=== PATIENT | female | born 1995 | race Caucasian/White ===

== ENCOUNTER 2021-01-31 05:52 | Emergency (ER) | payer MEDICAID, SELFPAY ==
--- NOTE | ~2021-01-31 | CT_ITS ---
EXAMINATION: CT ABDOMEN AND PELVIS WITHOUT CONTRAST CLINICAL INFORMATION: Right lower quadrant pain. Concern for appendicitis. COMPARISON: None TECHNIQUE: Multidetector volumetric imaging was performed from the superior aspect of the liver through the pubic symphysis. Sagittal and coronal reformatted images were obtained on the technologist's workstation. This CT examination was performed using dose optimization techniques as appropriate, variously including the following: *Automated exposure control *Adjustment of mA and/or kV according to patient size (this includes techniques or standardized protocols for targeted exams where dose is matched to indication/reason for exam; i.e. extremities or head) *Use of iterative reconstruction technique DLP: 708 mGy-cm FINDINGS: LUNG BASES: The visualized lung bases are unremarkable. LIVER, GALLBLADDER, AND BILIARY TREE: The liver is normal in size, shape, and attenuation. No focal hepatic lesion or biliary ductal dilatation is present. The gallbladder is unremarkable with no evidence of radiopaque gallstones, gallbladder wall thickening, or obvious pericholecystic inflammatory changes. PANCREAS: Unremarkable. SPLEEN: Unremarkable. ADRENAL GLANDS: Unremarkable. KIDNEYS AND URETERS: The kidneys are normal in size, shape, and attenuation. No hydronephrosis, hydroureter, or calculi seen. No perinephric stranding. BLADDER: Unremarkable. GASTROINTESTINAL TRACT: The stomach and duodenum are unremarkable. No abnormality of the small bowel or mesentery is evident. The colon is unremarkable. The appendix is normal. ABDOMINAL WALL: There is a small fat-containing umbilical hernia. LYMPH NODES: Normal. VASCULAR: Unremarkable. PELVIC VISCERA: Unremarkable. OSSEOUS STRUCTURES: Unremarkable. CT/CT abdomen pelvis wo con IMPRESSION: No significant abnormality. Normal appendix. Incidentally noted small fat-containing umbilical hernia.
[2021-01-31 06:08] VITALS: BP 151/115; PULSE 82; RESP 16; TEMP 36.7; O2SAT 99; BMI 33.3
--- NOTE | 2021-01-31 07:07 | ED.ABDPAIN ---
HPI - Abdominal Pain General Chief Complaint: Abdominal Pain Stated Complaint: Abd pain Time Seen by Provider: 01/31/21 07:01 Source: patient and other Mode of arrival: ambulatory Limitations: no limitations History of Present Illness HPI narrative: 25-year-old was bone as a female with trans gender to a male, patient presented today with 5 days of upper abdominal pain that migrated around the umbilical area now pain is in the right lower quadrant area, pain described as constant for the past 5 days, moderate in severity about 5/10, described as a dull aching pain, associated with nausea but no vomiting and loose stool but no christen diarrhea, patient was normal appetite. Patient recently was seen by his PCP and had upper abdominal ultrasound reportedly was normal. Related Data Previous Rx's Medication Instructions Recorded cefuroxime axetil 500 mg PO Q12H #14 tab 01/31/21 Allergies Allergy/AdvReac Type Severity Reaction Status Date / Time Penicillins [PENICILLINS] Allergy Unknown NAUSEA & Unverified 07/30/20 19:07 VOMITING shellfish derived Allergy Unknown ANAPHYLAXIS Unverified 07/30/20 19:07 [SHELLFISH DERIVED] Review of Systems Review of Systems All other systems are reviewed and are negative Constitutional: Reports as per HPI and Reports no additional constitutional complaints Eyes: Reports as per HPI and Reports no additional eye complaints Reports system reviewed and no additional complaints, except as documented Cardiovascular: Reports as per HPI and Reports no additional cardiovascular complaints Respiratory: Reports as per HPI and Reports no additional respiratory complaints Gastrointestinal: Reports as per HPI and Reports no additional gastrointestinal complaints Genitourinary: Reports no additional female genitourinary complaints Musculoskeletal: Reports no additional musculoskeletal complaints Skin/Breast: Reports system reviewed and no additional complaints, except as docu Psychiatric: Reports no additional psychiatric complaints Endocrine: Reports no additional endocrine complaints Hematologic/Lymphatic: Reports no additional hematologic/lymphatic complaints Allergic/Immunologic: Reports no additional allergic/immunologic complaints Reports system reviewed and no additional complaints, except as documented and Reports Abnormal speech present Physical Exam Vital Signs: Vital Signs: Last Vital Signs Temp 98.0 F 01/31/21 06:08 Pulse 82 01/31/21 06:08 Resp 16 01/31/21 06:08 BP 151/115 H 01/31/21 06:08 Pulse Ox 99 01/31/21 06:08 Body Mass Index 33.3 Vital signs have been reviewed as appeared to be correct. Blood pressure is high. Heart rate normal. Respiration rate normal. Temperature normal. Oxygen saturation normal. Appearance: Alert. Oriented X3. No acute distress. Head: Normal external exam. Normocephalic. Atraumatic. No Elena signs noted. No raccoon eyes noted Eyes: PERRLA. EOMI. Conjunctiva and sclera normal. Eyelids normal. ENT: TM's Normal. Pharynx normal. Uvula midline. Moist mucous membranes. No trismus noted. No drooling noted. No muffled voice noted. Neck: Normal inspection. Neck supple. FROM. No adenopathy. Thyroid Normal. No meningeal signs. No neck mass noted. CVS: Normal heart rate and rhythm. Heart sound normal. No murmurs noted. Pulses normal throughout. Respiratory: No respiratory distress. Painless inspiration. Breath sounds normal. No wheezes/rales/rhonchi noted. Chest nontender. No accessory muscle usage noted or decreased air movement noted. Abdomen: Soft, mild epigastric tenderness, mild mid abdominal tenderness, mild right lower quadrant tenderness, no guarding rebound tenderness. Bowel sounds normal in all 4 quadrants. No distention noted. No organomegaly noted. No visible injury noted. Back: No CVA tenderness. Full range of motion noted. Skin: Skin warm and dry. Normal skin color. Normal skin turgor. No rashes/lesions/lacerations noted. Extremities: No lower extremity edema. Extremities exhibit normal range of motion. Extremities nontender. Neuro: Oriented X 3. No motor deficit. No sensory deficit. Reflexes normal. Course Course Course Narrative: Assessment and plan. 25-year-old female transgender to a male presented with abdominal pain for 5 days, unremarkable labs except for slightly goes trace/wbc's in the urine, patient feels pressure with urination but no dysuria or frequency, CT showed normal appendix with fat containing umbilical hernia. Will start the patient on Ceftin. MDM - Abdominal Pain Lab Data Attestation: I reviewed the patient's lab results. Result diagrams: 01/31/21 07:30 01/31/21 07:30 Labs: Lab Results 01/31/21 01/31/21 01/31/21 Range/Units 07:30 07:30 07:54 WBC 8.6 (4.8-10.8) X10*3/uL RBC 5.09 (4.20-5.50) X10*6/uL Hgb 16.5 H (12.0-16.0) g/dl Hct 49.4 H (37-47) % MCV 97.1 (80-98) fL MCH 32.4 (27.0-33.0) pg MCHC 33.4 (31.0-35.0) g/dl RDW 11.8 (11.0-16.0) % Plt Count 285 (160-400) X10*3/uL MPV 10.5 (9.4-12.3) fL Immature Gran % (Auto) 0.2 (0.0-0.4) % Neut % (Auto) 57.4 (45-73) % Lymph % (Auto) 28.6 (20-40) % Elk % (Auto) 10.9 (2-11) % Eos % (Auto) 2.2 (0-4) % Baso % (Auto) 0.7 (0-2) % Lymph # (Auto) 2.5 (1.2-4.9) X10*3/uL Elk # (Auto) 0.9 (0.1-1.2) X10*3/uL Eos # (Auto) 0.2 (0.0-0.4) X10*3/uL Baso # (Auto) 0.1 (0.0-0.2) X10*3/uL Abs Immat Gran (auto) 0.02 (0.00-0.03) X10*3/uL Absolute Neuts (auto) 4.9 (2.0-8.3) X10*3/uL Absolute Nucleated RBC 0.000 (0.0-0.012) X10*3/uL Nucleated RBC % (auto) 0.0 (0.0-0.2) /100WBC Sodium 138 (135-145) mmol/L Potassium 4.5 (3.3-5.1) mmol/L Chloride 101 (96-108) mmol/L Carbon Dioxide 31 H (22-29) mmol/L Anion Gap 11 L (12-20) BUN 13 (9-16) mg/dL Creatinine 0.85 (0.5-1.4) mg/dL Estim Creat Clear Calc 113.6 Estimated GFR > 60 Random Glucose 86 (60-115) mg/dL Calcium 9.5 (8.4-10.2) mg/dL Total Bilirubin 0.6 (0.0-1.0) mg/dL Direct Bilirubin 0.2 (0.0-0.5) mg/dL AST 13 (5-31) U/L ALT 15 (0-31) U/L Alkaline Phosphatase 80 (39-117) U/L Total Protein 7.7 (6.5-8.0) g/dL Albumin 4.8 (3.5-5.0) g/dL Lipase 20 (8-78) U/L Urine Color STRAW Urine Appearance HAZY Urine pH 7.0 (5.0-8.0) Ur Specific [place] 1.015 (1.005-1.025) Urine Protein NEG (NEG-TRACE) MG/DL Urine Glucose (UA) NEG (NEG) MG/DL Urine Ketones NEG (NEG) MG/DL Urine Blood NEG (NEG) Urine Nitrite NEG (NEG) Ur Leukocyte Esterase 2+ H (NEG) Urine RBC 0 (0) /HPF Urine WBC 5-9 H (0-4) /HPF Ur Squamous Epith Cells 1+ /LPF Urine Bacteria 1+ /LPF Urine Test (NEGATIVE) 01/31/21 Range/Units 07:54 WBC (4.8-10.8) X10*3/uL RBC (4.20-5.50) X10*6/uL Hgb (12.0-16.0) g/dl Hct (37-47) % MCV (80-98) fL MCH (27.0-33.0) pg MCHC (31.0-35.0) g/dl RDW (11.0-16.0) % Plt Count (160-400) X10*3/uL MPV (9.4-12.3) fL Immature Gran % (Auto) (0.0-0.4) % Neut % (Auto) (45-73) % Lymph % (Auto) (20-40) % Elk % (Auto) (2-11) % Eos % (Auto) (0-4) % Baso % (Auto) (0-2) % Lymph # (Auto) (1.2-4.9) X10*3/uL Elk # (Auto) (0.1-1.2) X10*3/uL Eos # (Auto) (0.0-0.4) X10*3/uL Baso # (Auto) (0.0-0.2) X10*3/uL Abs Immat Gran (auto) (0.00-0.03) X10*3/uL Absolute Neuts (auto) (2.0-8.3) X10*3/uL Absolute Nucleated RBC (0.0-0.012) X10*3/uL Nucleated RBC % (auto) (0.0-0.2) /100WBC Sodium (135-145) mmol/L Potassium (3.3-5.1) mmol/L Chloride (96-108) mmol/L Carbon Dioxide (22-29) mmol/L Anion Gap (12-20) BUN (9-16) mg/dL Creatinine (0.5-1.4) mg/dL Estim Creat Clear Calc Estimated GFR Random Glucose (60-115) mg/dL Calcium (8.4-10.2) mg/dL Total Bilirubin (0.0-1.0) mg/dL Direct Bilirubin (0.0-0.5) mg/dL AST (5-31) U/L ALT (0-31) U/L Alkaline Phosphatase (39-117) U/L Total Protein (6.5-8.0) g/dL Albumin (3.5-5.0) g/dL Lipase (8-78) U/L Urine Color Urine Appearance Urine pH (5.0-8.0) Ur Specific [place] (1.005-1.025) Urine Protein (NEG-TRACE) MG/DL Urine Glucose (UA) (NEG) MG/DL Urine Ketones (NEG) MG/DL Urine Blood (NEG) Urine Nitrite (NEG) Ur Leukocyte Esterase (NEG) Urine RBC (0) /HPF Urine WBC (0-4) /HPF Ur Squamous Epith Cells /LPF Urine Bacteria /LPF Urine Test NEGATIVE (NEGATIVE) Imaging Data CT scan - abdomen: Radiologist's impression: No significant abnormality. Normal appendix. Incidentally noted small fat-containing umbilical hernia. Discharge Plan Discharge Clinical Impression: Hernia, umbilical Qualifiers: Obstruction and gangrene presence: without obstruction or gangrene Qualified Code(s): K42.9 - Umbilical hernia without obstruction or gangrene UTI (urinary tract infection) Qualifiers: Urinary tract infection type: acute cystitis Hematuria presence: without hematuria Qualified Code(s): N30.00 - Acute cystitis without hematuria Patient Disposition: Home, Self-Care Instructions: Urinary Tract Infection in Men (ED), Umbilical Hernia (ED) Prescriptions: New cefuroxime axetil 500 mg tablet 500 mg PO Q12H Qty: 14 RF: 0 Referrals: Oscar Irene MD [Physician] - 2 days Marichuy Stapleton NP [Primary Care Provider] - 2 days [facility] Past Medical History Medical History IBS (irritable bowel syndrome) Migraine Social History Social History Advance Directives: No Advance Directives Information Provided: No
[2021-01-31] MEDS: 0.9 % Sodium Chloride 1,000 ML 999 ML IVCONT (07:32)
[2021-01-31 07:36] LABS: MANUAL DIFF FLAG NO
[2021-01-31 07:46] LABS: Basophils Absolute Auto 0.1 X10*3/uL (0.0-0.2); Basophils Percent Auto 0.7 % (0-2); Eosinophils Absolute Auto 0.2 X10*3/uL (0.0-0.4); Eosinophils Percent Auto 2.2 % (0-4); Hematocrit 49.4 % (37-47); Hemoglobin 16.5 g/dl (12.0-16.0); Imm Gran Abs Auto 0.02 X10*3/uL (0.00-0.03); Imm Gran Pct Auto 0.2 % (0.0-0.4); Lymphocytes Absolute Auto 2.5 X10*3/uL (1.2-4.9); Lymphocytes Percent Auto 28.6 % (20-40); Mean Corpuscular HGB Conc 33.4 g/dl (31.0-35.0); Mean Corpuscular Hemoglobin 32.4 pg (27.0-33.0); Mean Corpuscular Volume 97.1 fL (80-98); Mean Platelet Volume 10.5 fL (9.4-12.3); Monocytes Absolute Auto 0.9 X10*3/uL (0.1-1.2); Monocytes Percent Auto 10.9 % (2-11); Neutrophils Absolute Auto 4.9 X10*3/uL (2.0-8.3); Neutrophils Percent Auto 57.4 % (45-73); Platelet Count 285 X10*3/uL (160-400); Red Blood Count 5.09 X10*6/uL (4.20-5.50); Red Cell Distribution Width 11.8 % (11.0-16.0); White Blood Count 8.6 X10*3/uL (4.8-10.8)
[2021-01-31 08:02] LABS: Glucose Urine UA NEG (NEG); Leukocyte Esterase Urine 2+ (NEG); Nitrite Urine NEG (NEG); Specific Gravity - Urine 1.015 (1.005-1.025); UACC Culture Trigger YES; Urine Blood NEG (NEG); Urine Ketones NEG (NEG); Urine Protein NEG (NEG-TRACE)
[2021-01-31 08:04] LABS: Alanine Aminotransferase 15 U/L (0-31); Albumin Level 4.8 g/dL (3.5-5.0); Alkaline Phosphatase 80 U/L (39-117); Anion Gap 11 (12-20); Aspartate Amino Transferase 13 U/L (5-31); Bilirubin Direct 0.2 mg/dL (0.0-0.5); Bilirubin Total 0.6 mg/dL (0.0-1.0); Blood Urea Nitrogen 13 mg/dL (9-16); Calcium 9.5 mg/dL (8.4-10.2); Carbon Dioxide 31 mmol/L (22-29); Chloride 101 mmol/L (96-108); Creatinine Clr Calc Pharmacy 113.6; Estimated Glomerular Filt Rate > 60; Glucose Random 86 mg/dL (60-115); Lipase 20 U/L (8-78); Potassium 4.5 mmol/L (3.3-5.1); Sodium 138 mmol/L (135-145); Total Protein 7.7 g/dL (6.5-8.0)
[2021-01-31 08:06] LABS: Appearance Urine HAZY; Color Urine STRAW
[2021-01-31 08:07] LABS: UPreg QC Valid YES; Urine Pregnancy NEGATIVE (NEGATIVE)
[2021-01-31 08:26] LABS: Bacteria Urine 1+ /LPF; RBC Urine 0 /HPF (0); Squamous Epithelial Cell Urine 1+ /LPF
== END 2021-01-31 10:41 | disposition home or self-care (01) ==
PROVIDERS: Emergency Provider Emergency Medicine; PCP Nurse Practitioner Family
DX: N30.00 Acute cystitis without hematuria (principal); K42.9 Umbilical hernia without obstruction or gangrene; F64.0 Transsexualism
CPT/HCPCS: 36415; 74176; 80048; 80076; 81001; 81003; 81025; 83690; 85025; 87086; 96360; 99283; 99284

== ENCOUNTER 2021-02-15 20:09 | Emergency (ER) | payer MEDICAID, SELFPAY ==
[2021-02-15 20:27] VITALS: BP 117/108; PULSE 71; RESP 14; TEMP 36.8; O2SAT 99; BMI 31.5
[2021-02-15 20:35] VITALS: BP 163/101; PULSE 86; RESP 14; TEMP 36.8; O2SAT 99
--- NOTE | 2021-02-15 20:37 | ED_ITS ---
HPI - General Adult General Chief complaint: General Medical Stated complaint: syncope Time Seen by Provider: 02/15/21 20:37 Source: patient and EMS Mode of arrival: EMS Limitations: no limitations History of Present Illness HPI narrative: Patient trans gender change from female to male on testosterone injections came by ambulance for nonspecific complaints feeling lightheaded while blowing the nose felt like passing out abdominal pain chest pain for last 1 month lightheadedness for last few days denies any vomiting patient with history of anxiety on Xanax lately. On arrival patient's blood pressure was 163/101 Related Data Previous Rx's Medication Instructions Recorded cefuroxime axetil 500 mg PO Q12H #14 tab 01/31/21 Allergies Allergy/AdvReac Type Severity Reaction Status Date / Time Penicillins [PENICILLINS] Allergy Unknown NAUSEA & Verified 02/15/21 21:28 VOMITING shellfish derived Allergy Unknown ANAPHYLAXIS Verified 02/15/21 21:28 [SHELLFISH DERIVED] Review of Systems Review of Systems: Constitutional : No Weight loss, No Fever, No Chills ENT/Mouth : No sore throat, No Rhinorrhea Eyes: No Eye Pain, No Swelling Cardiovascular : No Chest Pain, no palpitations Respiratory : No Cough, No Sputum, no shortness of breath Gastrointestinal : no Nausea, No Vomiting, No Diarrhea, No abdominal Pain, no black stools Genitourinary : No Dysuria, No Urinary Frequency Musculoskeletal : No joint pain, No Myalgias, No Joint Swelling Skin : No Skin Lesions, No rash Neuro : No Weakness, No Numbness, + Dizziness, No Headache Psych : No Anxiety/Panic, No Depression Heme/Lymph: No Bruising, No Lymphadenopathy Endocrine : No Polyuria, No Polydipsia All other systems reviewed and are negative PMFSH Past Medical History Medical History IBS (irritable bowel syndrome) Migraine Social History Social History Advance Directives: No Advance Directives Information Provided: Yes Physical Exam Vital Signs: Vital Signs: Last Vital Signs Temp 98.3 F 02/15/21 20:35 Pulse 87 02/15/21 22:19 Resp 16 02/15/21 22:19 BP 139/95 H 02/15/21 22:19 Pulse Ox 99 02/15/21 20:35 Body Mass Index 31.5 Const: General: comfortable, no acute distress and other (Female to male features) Nutritional Appearance: well nourished Orientation/consciousness: patient oriented x3 HENMT: Head: Yes normocephalic Ears: hearing grossly normal bilaterally Mouth: Normal oral and palatal mucosa present Eyes: General: appearance normal, both eyes and all related structures Neck: Neck: Yes normal visual inspection, Yes full ROM, Yes no lymphadenopathy and Yes no JVD Chest: Chest palpation & inspection: normal inspection of the chest Resp: Effort & Inspection: normal respiratory effort Auscultation: clear to auscultation bilaterally, no crackles and no rales Cardio: Palpation: normal PMI Rate: regular rate Rhythm: regular rhythm Heart sounds: S1 normal heart sound present and S2 normal heart sound present Peripheral pulses: Peripheral pulses 2+ throughout GI: Inspection: Yes normal to inspection Palpation (GI): Soft to palpation and nontender : General: Yes no CVA tenderness Back/Spine/Pelvis: Back: no CVA tenderness Thoracic/Lumbar Spine: thoracic and lumbar spine normal to inspection Skin: General skin exam: no rashes or lesions noted Neuro: General: patient oriented x3, gait normal, no focal motor deficits and CN's II-XI intact bilaterally Extrem: General: Yes normal to inspection, Yes normal gait and No pedal edema Medical Decision Making MDM Narrative Medical decision making narrative: Patient likely with vagal near-syncope also has slightly elevated blood pressure secondary to anxiety also on testosterone patient advised to check his blood pressure daily and should be less than 140/90. Lab Data Lab results reviewed: Yes I reviewed the patient's lab results. Labs: Lab Results 02/15/21 Range/Units 21:28 Urine Color YELLOW Urine Appearance CLEAR Urine pH 7.0 (5.0-8.0) Ur Specific [place] 1.020 (1.005-1.025) Urine Protein NEG (NEG-TRACE) MG/DL Urine Glucose (UA) NEG (NEG) MG/DL Urine Ketones NEG (NEG) MG/DL Urine Blood NEG (NEG) Urine Nitrite NEG (NEG) Ur Leukocyte Esterase 1+ H (NEG) Urine RBC 0-2 (0) /HPF Urine WBC 5-9 H (0-4) /HPF Ur Squamous Epith Cells TRACE /LPF Amorphous Sediment TRACE /LPF Urine Bacteria TRACE /LPF Urine Mucus 1+ /LPF ECG Data Attestation: I personally reviewed and interpreted this ECG as follows: Interpretation: Normal sinus rhythm heart rate 67 beats per minute normal intervals normal axis no acute ST T wave changes impression normal EKG Discharge Plan Discharge Clinical Impression: Vasovagal near syncope, Hypertension Patient Disposition: Home, Self-Care Instructions: Syncope (ED), Hypertension (ED) Additional Instructions: Drink plenty of fluids Check with your PCP about testosterone dosage as you have borderline hypertension. Check blood pressure daily should be less than 140/90 Prescriptions: No Action cefuroxime axetil 500 mg tablet 500 mg PO Q12H Qty: 14 RF: 0 Interventions: ED Discharge Assessment Last Done: 02/15/21 22:23 Discharge Date/Time: 02/15/21 22:24
[2021-02-15 20:44] VITALS: BP 160/87; PULSE 88
[2021-02-15 20:45] VITALS: BP 161/95; PULSE 75
[2021-02-15 20:49] VITALS: BP 144/103; PULSE 81
--- NOTE | 2021-02-15 20:51 | ECG_ITS ---
Test Reason : DIZZINESS Blood Pressure : / mmHG Vent. Rate : 067 BPM Atrial Rate : 067 BPM P-R Int : 150 ms QRS Dur : 092 ms QT Int : 376 ms P-R-T Axes : 032 038 025 degrees QTc Int : 397 ms Normal sinus rhythm Normal ECG No previous ECGs available Referred By: Elier Rizo Electronically Signed By:NATY KAUR MD
--- NOTE | 2021-02-15 21:13 | PC.NURSE ---
Pt coming from home where he lives with parents and girlfriend. Per pt, he is transitioning from female to male and prefers the name AJ. Pt reporting multiple complaints, explains that today, while blowing his nose, he became dizzy and felt like he was going to pass out. Pt reporting persistent, intermittent abdominal and pelvic pain for one year, states he has been seeing his [employer]. Pt reports a history of UTIs, denies dysuria at this time but reporting abdominal/pelvic pain. Per pt, he takes testosterone once a week and recently decreased the dose. Pt denies any history of HTN. Pt reports increased stress at home, states all parties have health issues. Orthos complete, EKG obtained by this RN. at bedside for primary eval. Plan for UA at this time. Continue to monitor.
--- NOTE | 2021-02-15 21:28 | PC.NURSE ---
UA obtained and sent.
[2021-02-15 21:46] LABS: Glucose Urine UA NEG (NEG); Leukocyte Esterase Urine 1+ (NEG); Nitrite Urine NEG (NEG); UACC Culture Trigger YES; Urine Blood NEG (NEG); Urine Ketones NEG (NEG); Urine Protein NEG (NEG-TRACE)
[2021-02-15 21:50] LABS: Appearance Urine CLEAR; Color Urine YELLOW
[2021-02-15 22:19] VITALS: BP 139/95; PULSE 87; RESP 16
[2021-02-15 22:39] LABS: Amorphous Sediment Urine TRACE /LPF; Bacteria Urine TRACE /LPF; Mucus Urine 1+ /LPF; RBC Urine 0-2 /HPF (0); Squamous Epithelial Cell Urine TRACE /LPF
== END 2021-02-15 22:24 | disposition home or self-care (01) ==
PROVIDERS: Emergency Provider Internal Medicine; PCP Nurse Practitioner Family
DX: R55 Syncope and collapse (principal); I10 Essential (primary) hypertension; Z79.899 Other long term (current) drug therapy
CPT/HCPCS: 81001; 81003; 87086; 93005; 99284

== ENCOUNTER → 2021-05-28 08:46 | Outpatient (BNVA) | payer MEDICAID, SELFPAY | PROVIDERS: PCP Nurse Practitioner Family | DX: N39.0 Urinary tract infection, site not specified (principal) | CPT/HCPCS: 99202 ==

== ENCOUNTER 2023-11-03 11:28 | Emergency (ER) | payer MEDICAID, SELFPAY ==
[2023-11-03 11:43] VITALS: BP 146/90; PULSE 77; O2SAT 99; BMI 34.1
--- NOTE | 2023-11-03 12:22 | PC.NURSE ---
urine obtained/sent to lab by tech.
[2023-11-03 12:45] LABS: Appearance Urine Clear; Color Urine Yellow; Glucose Urine UA Negative (Negative); Leukocyte Esterase Urine Large (3+) (Negative); Nitrite Urine Negative (Negative); PH 7.5 (5.0-9.0); Specific Gravity - Urine <= 1.005 (1.005-1.025); UMIC TRIGGER UACC YES; Urine Blood Small (1+) (Negative); Urine Ketones Negative (Negative); Urine Protein Negative (Neg-Trace)
[2023-11-03 13:00] VITALS: BP 155/96; PULSE 78; RESP 18; TEMP 36.9; O2SAT 97
[2023-11-03 13:00] LABS: Bacteria Urine None Seen (None Seen); Hyaline Casts Urine 0-2 /LPF (0-2); RBC Urine 0-2 /HPF (0-2); Squamous Epithelial Cell Urine 0-2 /HPF (0-2); UACC Culture Trigger YES; WBC Urine 21-50 /HPF (0-5)
--- NOTE | 2023-11-03 13:05 | ED_ITS ---
HPI - Abdominal Pain General Chief Complaint: Urogenital-Male Stated Complaint: ABD PAIN PAINFUL URINATION Time Seen by Provider: 11/03/23 11:32 History of Present Illness HPI narrative: Patient is a 28-year-old biologic female, pr for pronoun to be male patient is currently undergoing testosterone treatment. Presented today with having increasing frequency. Having pain on urination very similar to previous bouts of urinary tract infection. Patient has a biologically male partner. No nausea no vomiting no flank pain. No fever no chills. No diaphoresis. Related Data Previous Rx's Medication Instructions Recorded cefuroxime axetil 500 mg tablet 500 mg PO Q12H #14 tabs 01/31/21 cephalexin 500 mg capsule 500 mg PO TID 7 days #21 caps 11/03/23 Allergies Allergy/AdvReac Type Severity Reaction Status Date / Time Penicillins [PENICILLINS] Allergy Unknown NAUSEA & Verified 11/03/23 11:43 VOMITING shellfish derived Allergy Unknown ANAPHYLAXIS Verified 11/03/23 11:43 [SHELLFISH DERIVED] Review of Systems Review of Systems Positive pain on urination PMFSH Past Medical History Attestation statement: The following information was validated with the patient. Medical History IBS (irritable bowel syndrome) Migraine Social History Social History Advance Directives: No Advance Directives Information Provided: Yes Physical Exam ED Vital Signs: Vital Signs - 24 hr 11/03/23 13:00 Temperature 98.4 F Pulse Rate 78 Respiratory Rate 18 Blood Pressure 155/96 H Pulse Oximetry 97 Oxygen Delivery Method Room Air BMI result Body Mass Index 34.1 Appearance: Alert. Oriented X3. No acute distress. Eyes: Pupils equal, round and reactive to light. ENT: Pharynx normal. Neck: Normal inspection. Neck supple. No lymph nodes noted. No crepitus CVS: Normal heart rate and rhythm. Pulses normal. Normal S1 and S2 Respiratory: No respiratory distress. Breath sounds normal. No Wheezing. No rales Abdomen: Soft and nontender. No rigidity. No distention. good BS x4 Skin: Skin warm and dry. Normal skin color. Normal skin turgor. Extremities: No lower extremity edema. Neurovascular intact to all extremities. No Lacerations. No Rash Neuro: Oriented X 3. No motor deficit. No sensory deficit. Moving all extermities. No slurred speech Medical Decision Making Medical Decision Making [facility] Narrative: Patient is 28 years old biologically a female currently on testosterone for further be identified is a male patient presented today with having pain on urination increasing frequency. She has a biologically male identify is a female partner. Patient's test is negative. Urine shows signs of urinary tract infection. Abdominal exam is soft nontender. Has a history of penicillin allergy but it is nausea and vomiting. Will discharge patient home on Keflex. Close follow-up on an outpatient basis. Differential Diagnosis Differential Diagnoses: The differential diagnosis associated with the present ation includes Urinary tract infection Lab Data [facility] Lab Attestation statement: I reviewed the patient's lab results. Labs: Lab Results 11/03/23 Range/Units 12:35 Urine Color Yellow Urine Appearance Clear Urine pH 7.5 (5.0-9.0) Ur Specific [place] <= 1.005 (1.005-1.025) Urine Protein Negative (Neg-Trace) mg/dL Urine Glucose (UA) Negative (Negative) mg/dL Urine Ketones Negative (Negative) mg/dL Urine Blood Small (1+) H (Negative) Urine Nitrite Negative (Negative) Ur Leukocyte Esterase Large (3+) H (Negative) Urine RBC 0-2 (0-2) /HPF Urine WBC 21-50 H (0-5) /HPF Ur Squamous Epith Cells 0-2 (0-2) /HPF Urine Bacteria None Seen (None Seen) Hyaline Casts 0-2 (0-2) /LPF Urine Test NEGATIVE (NEGATIVE) External Record Review Previous culture record reviewed. Prescription Management Antibiotic prescribed is patient has a urinary tract infection Chronic Conditions No history diabetes Discharge Plan Discharge Clinical Impression: UTI (urinary tract infection) Patient Disposition: Home, Self-Care Instructions: Acute Urinary Retention in Women (ED) Prescriptions: New cephalexin 500 mg capsule 500 mg PO TID 7 Days Qty: 21 0RF No Action cefuroxime axetil 500 mg tablet 500 mg PO Q12H Qty: 14 0RF Referrals: Marichuy Stapleton NP [Primary Care Provider] - 11/07/23
[2023-11-03 13:18] LABS: UPreg QC Valid YES; Urine Pregnancy NEGATIVE (NEGATIVE)
== END 2023-11-03 15:04 | disposition home or self-care (01) ==
PROVIDERS: Emergency Provider Emergency Medicine Emergency Medical Services; PCP Nurse Practitioner Family
DX: N39.0 Urinary tract infection, site not specified (principal); F64.0 Transsexualism; Z79.890 Hormone replacement therapy
CPT/HCPCS: 81001; 81025; 87086; 99283

== ENCOUNTER 2024-08-01 16:30 | Emergency (ER) | payer OTHER, MEDICAID, SELFPAY ==
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
[2024-08-01 16:44] VITALS: BP 148/86; BP 151/87; PULSE 117; PULSE 97; RESP 16; TEMP 37; O2SAT 98; O2SAT 99; BMI 31.6
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
[2024-08-01 18:43] VITALS: BP 147/86; PULSE 86; RESP 17; TEMP 37.1; O2SAT 95
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
[2024-08-01 20:20] VITALS: BP 148/84; PULSE 83; RESP 20; TEMP 36.7; O2SAT 98
[2024-08-01 20:21] VITALS: BP 148/84; PULSE 83; RESP 20; TEMP 36.7; O2SAT 98
== END 2024-08-01 20:22 | disposition home or self-care (01) ==
PROVIDERS: Emergency Provider Emergency Medicine; PCP Nurse Practitioner Family
DX: S39.012A Strain of muscle, fascia and tendon of lower back, initial encounter (principal); V43.52XA Car driver injured in collision with other type car in traffic accident, initial encounter; Y93.89 Activity, other specified; Y92.414 Local residential or business street as the place of occurrence of the external cause; Y99.9 Unspecified external cause status
CPT/HCPCS: 70450; 72100; 72125; 99284

== ENCOUNTER 2025-05-10 12:37 | Emergency (ER) | payer OTHER, MEDICAID, SELFPAY ==
--- NOTE | ~2025-05-10 | XR_ITS ---
CLINICAL HISTORY: ingestion 2 view chest x-ray Comparison: None provided Findings: No consolidation or effusion. Normal size heart. No acute fracture. IMPRESSION: 1. No acute findings. This document has been electronically signed by: Ela Stephen MD on 05/10/2025 13:42:15
--- NOTE | 2025-05-10 12:40 | ED_ITS ---
HPI - General Adult General Chief complaint: General Medical Stated complaint: ?ALLERGIC REACTION TO ABX PER EMS Time Seen by Provider: 05/10/25 12:40 Source: patient and EMS Mode of arrival: EMS Limitations: no limitations History of Present Illness ED Provider: Rosanna Mercado PA-C HPI narrative: Patient is a 30 year old assigned female at , now male, with no reported medical history presenting to the emergency department today with a sore throat s/p medication ingestion. Patient states that he took his prophylactic doxycycline, PrEP, and oral testosterone this morning and shortly after, his throat began to hurt / feel scratched. Patient states that all 3 pills went down OK but are large in size. Patient denies any dizziness, lightheadedness, abdominal pain, nausea, vomiting, fever, chills, blurry vision, double vision, loss of vision, chest pain, difficulty breathing, shortness of breath, back pain, night sweats, pain with urination, increased urinary frequency, increased urinary urgency, blood in his urine or stool, syncope or a near syncopal episode, recent trauma or falls, bowel incontinence, bladder incontinence, or any other complaints at this time. Related Data Previous Rx's ?Medication ?Instructions ?Recorded cefuroxime axetil 500 mg tablet 500 mg PO Q12H #14 tab s 01/31/21 cephalexin 500 mg capsule 500 mg PO TID 7 days #21 cap s 11/03/23 cyclobenzaprine 5 mg tablet 5 mg PO Q8H #7 tabs lidocaine 5 % topical patch 1 patch topical DAILY #15 ea 08/01/24 (Lidoderm) Allergies Allergy/AdvReac Type Severity Reaction Status Date / Time Penicillins (PENICILLINS) Allergy Unknown NAUSEA & Verified 05/10/25 12:46 VOMITING shellfish derived (SHELLFISH Allergy Unknown ANAPHYLAXIS Verified 05/10/25 12:46 DERIVED) Review of Systems Constitutional: Constitutional: Reports no additional constitutional complaints, Denies chills, Denies fever(s) and Denies night sweats Eyes: Eyes: Reports no additional eye complaints, Denies blurry vision, Denies change in vision, Denies diplopia, Denies eye discharge, Denies loss of vision and Denies eye pain ENT: Denies dizziness and Reports sore throat Cardiovascular: Cardiovascular: Reports no additional cardiovascular complaints, Denies chest pain, Denies lightheadedness, Denies Loss of Consciousness and Denies dyspnea Respiratory: Respiratory: Reports no additional respiratory complaints and Denies dyspnea Gastrointestinal: Gastrointestinal: Reports no additional gastrointestinal complaints, Denies abdominal pain, Denies melena, Denies hematochezia, Denies change in bowel habits and Denies change in stool character Genitourinary: Genitourinary: Denies hematuria, Denies urinary frequency, Denies dysuria, Denies urinary incontinence, Denies urinary hesitancy and Denies urinary urgency Musculoskeletal: Musculoskeletal: Reports no additional musculoskeletal complaints, Denies numbness and Denies tingling Neurologic: Denies dizziness, Denies loss of vision, Denies numbness and Denies tingling Psychiatric: Psychiatric: Reports no additional psychiatric complaints Endocrine: Endocrine: Reports no additional endocrine complaints Hematologic/Lymphatic: Hematologic/Lymphatic: Reports no additional hematologic/lymphatic complaints Allergic/Immunologic: Allergic/Immunologic: Reports no additional allergic/immunologic complaints PMFSH Past Medical History Attestation statement: The following information was validated with the patient. Source: old records reviewed and nursing notes reviewed Medical History IBS (irritable bowel syndrome) Migraine Social History Social History Smoked in Last 30 Days: No Use of substances other than those prescribed or required for medical reasons: No Advance Directives: No Advance Directives Information Provided: Yes Do you have a plan to hurt others: No Plan Patient : No Physical Exam ED Vital Signs: Vital Signs - 24 hr 05/10/25 12:43 05/10/25 14:09 05/10/25 14:11 Temperature 98.2 F 98.2 F 98.2 F Pulse Rate 74 74 74 Respiratory Rate 18 18 18 Blood Pressure 139/97 H 139/97 H 139/97 H Pulse Oximetry 96 96 96 Oxygen Delivery Method Room Air Room Air Room Air BMI result Body Mass Index 31.6 Const General: cooperative, no acute distress, alert and awake Nutritional Appearance: well nourished Orientation/consciousness: patient oriented x3 HENMT Head: Yes normal to inspection and Yes atraumatic Ears: hearing grossly normal bilaterally and external ears normal General nose exam: Normal external nose present, no nasal discharge noted and no epistaxis Face and sinus: Yes normal facial exam, No abrasion and No laceration Mouth: Normal oral and palatal mucosa present, no drooling and no muffled voice Eyes General: appearance normal, both eyes and all related structures Periorbital: periorbital findings normal Eyelids: Yes eyelids normal Conjunctivae: conjunctivae normal Pupils: Equal, round and reactive pupils present EOM: EOMs intact bilaterally Neck Neck: Yes normal visual inspection, Yes full ROM and Yes no lymphadenopathy Resp Effort & Inspection: normal respiratory effort and able to speak in complete sentences Neuro General: patient oriented x3, moves all extremities and CN's II-XI intact bilaterally Cranial nerves: Yes Equal, round and reactive pupils present Cognition (Neuro): normal cognition Extrem General: Yes normal to inspection, Yes full ROM and Yes capillary refill normal Psych Appearance: grossly normal Mental Status: mental status grossly normal Affect: normal affect Attitude: cooperative Thought process: Normal thought process present Thought content: Normal thought content present Insight: Good insight present (Psych) Medications Administered Discontinued Medications Generic Name Dose Route Start Last Admin Trade Name Freq PRN Reason Stop Dose Admin Lidocaine HCl 15 ml 05/10/25 12:47 05/10/25 12:50 Lidocaine Hcl Viscous 2 % 15 Ml Solution MUCOUS MEM 05/10/25 12:48 15 ml ONCE ONE Administration Medical Decision Making Medical Decision Making MDM Narrative: Patient is a 30 year old assigned female at , now male, with no reported medical history presenting to the emergency department today with a sore throat s/p medication ingestion. Patient's physical exam was unremarkable. Patient's chest x-ray showed no acute process. No evidence of anaphylaxis or an allergic reaction. Patient's clinical presentation is most consistent with pill esophigitis. I explained my physical exam findings as well as all test results to the patient. I answered all questions asked by the patient. I stressed the importance of the patient taking his medication as directed (either prescribed or as the over the counter packaging recommends). I stressed the importance of the patient following up with his primary care provider. I stressed the importance of the patient returning to the emergency department immediately if his symptoms were to worsen or if he were to develop any dizziness, shortness of breath, difficulty breathing, chest pain, blurry vision, loss of vision, nausea, vomiting, abdominal pain, fever, chills, back pain, or any other complaints. Patient verbalized agreement and understanding with this treatment plan and discharge. Differential Diagnosis Differential Diagnoses: The differential diagnosis associated with the presentation includes Pill esophigitis Admission/Observation Consideration of admission/observation: Escalation of care including admission/observation considered Patient would have been admitted to the hospital had his work up had any findings where hospital admission was appropriate and his clinical presentation warranted hospital admission. Independent Interpretation I performed an independent interpretation of an: Plain X-Ray Interpretation: My interpretation is in agreement with the radiologist's impression of this imaging study. CLINICAL HISTORY: ingestion 2 view chest x-ray Comparison: None provided Findings: No consolidation or effusion. Normal size heart. No acute fracture. IMPRESSION: 1. No acute findings. This document has been electronically signed by: Ela Stephen MD on 05/10/2025 13:42:15 Dictated By: Ela Stephen MD Signed By: Electronically signed by Ela Stephen MD 05/10/25 1343 Radiology Impression Discussion of test interpretation with radiology: I have reviewed the radiologist's reading. Independent Historian Clinical information obtained from an independent historian. History obtained from or confirmed by: EMS (EMS provided additional history and confirmed the history provided by the patient.) Discharge Plan Discharge Clinical Impression: Pill esophagitis Patient Disposition: Home, Self-Care Instructions: Esophagitis (ED) Additional Instructions: Please be sure to take your medications with lots and lots of water / liquid to avoid this in the future. Follow up with a primary care provider. Return to the emergency department immediately if your symptoms worsen or if you develop any numbness, tingling, dizziness, shortness of breath, difficulty breathing, chest pain, blurry vision, loss of vision, nausea, vomiting, abdominal pain, fever, chills, back pain, or any other complaints. If you do not have a primary care provider - call any of the below numbers to establish and follow up with a primary care provider. [facility] ([place] [phone] [place] [address] [place], [address] [facility] ([address] [place] [phone] [address] [facility], [address] [facility], [address] [facility] ([address] [place]) [phone] [place] [address], [address] [facility], [address] [facility] (Jair Flanagan) [phone] [place] [address], [address] [facility], [address] [facility] [phone] [address] [facility], [address] Please see the information below about our Patient Portal. If you are not yet enrolled in the [facility] Patient Portal, you will receive an enrollment email invitation following your visit to any [facility] setting. You may also self-enroll in the Patient Portal by visiting our website: [email or web address] The following information is required to access the Patient Portal: - Your [facility] Medical Record Number - Your personal home email address (must match what is in your electronic medical record, Registration staff can assist with this) - Name - Date of Capabilities of the Patient Portal: - Message some providers - View upcoming appointments - Access your health summary, medical history, and visit history - View current conditions and allergies - View procedure and lab results - View your medications, including guidelines, side effects, and precautions - Complete pre-appointment questionnaires requested by your provider - Ready summary reports of your office visits and procedures To access the Patient Portal Mobile Samuel, follow these directions: - Search [employer] in the [employer] Store or [employer] Store - Download the Samuel - Search for [facility] - Enter your login/password Prescriptions: No Action cefuroxime axetil 500 mg tablet 500 mg PO Q12H Qty: 14 0RF cephalexin 500 mg capsule 500 mg PO TID 7 Days Qty: 21 0RF cyclobenzaprine 5 mg tablet 5 mg PO Q8H Qty: 7 0RF lidocaine [Lidoderm] 5 % adhesive patch,medicated 1 patch topical DAILY Qty: 15 0RF Rx Instructions: leave on most painful area for up to 12 hrs Stand Alone Forms: Work/School Release Interventions: ED Discharge Assessment Last Done: 05/10/25 14:11 Discharge Date/Time: 05/10/25 14:11 Print Language: Jordanian
[2025-05-10 12:43] VITALS: BP 139/97; BP 200/140; PULSE 74; PULSE 92; RESP 18; TEMP 36.8; O2SAT 96; O2SAT 97; BMI 31.6
[2025-05-10] MEDS: Lidocaine HCl Viscous 2 % 15 ML SOLUTION MUCOUS MEM (12:50)
[2025-05-10 14:09] VITALS: BP 139/97; PULSE 74; RESP 18; TEMP 36.8; O2SAT 96
[2025-05-10 14:11] VITALS: BP 139/97; PULSE 74; RESP 18; TEMP 36.8; O2SAT 96
== END 2025-05-10 14:11 | disposition home or self-care (01) ==
PROVIDERS: Emergency Provider Emergency Medicine
DX: K20.80 Other esophagitis without bleeding (principal); Z79.899 Other long term (current) drug therapy
CPT/HCPCS: 71046; 99284

== ENCOUNTER → 2025-05-10 12:46 | Outpatient (BNV) | payer OTHER, MEDICAID, SELFPAY | PROVIDERS: Emergency Provider Emergency Medicine; Visit Provider Radiology Diagnostic Radiology | DX: K20.80 Other esophagitis without bleeding (principal) | CPT/HCPCS: 71046 ==

== ENCOUNTER 2025-06-09 13:32 | Emergency (ER) | payer MEDICAID, SELFPAY ==
--- NOTE | 2025-06-09 14:21 | ED_ITS ---
HPI - General Adult General Chief complaint: Neck Pain/Injury Stated complaint: neck pain and fever Time Seen by Provider: 06/09/25 20:21 Source: patient Mode of arrival: ambulatory Limitations: no limitations History of Present Illness ED Provider: Dr. Sumit Figueroa HPI narrative: 30-year-old trans female to male who presents emergency department for evaluation of intermittent neck pain, sweats, chills, lower back pain, joint pain, muscle pain, fatigue, increase tiredness times 1 week. The patient states that he was vacationing on the [facility] from to Monday (05/29 2024 to 06/01/2025). He states that while he was at the [facility], he ?hooked up? with other men. He did perform oral sex. He states that on 06/01/2020 5 gauge did develop a sore throat. He was seen by his PCP who noted erythema and white spots in the back of his throat. Patient was given a Zithromax Z-Ashok he states that 1 day after taking the Z-Ashok his sore throat symptoms resolved. He has not noticed a rash on his body. He did not notice any recent tick bite or insect bite while he was on the [facility]. The patient states that his PCP did do a throat swab for gonorrhea and chlamydia which was negative. The patient does use HIV PEP. He states that he was drinking alcohol while I was on the [facility]. He states that he was tested for COVID and flu and these tests were negative. Related Data Previous Rx's ?Medication ?Instructions ?Recorded cefuroxime axetil 500 mg tablet 500 mg PO Q12H #14 tab s 01/31/21 cephalexin 500 mg capsule 500 mg PO TID 7 days #21 cap s 11/03/23 cyclobenzaprine 5 mg tablet 5 mg PO Q8H #7 tabs lidocaine 5 % topical patch 1 patch topical DAILY #15 ea 08/01/24 (Lidoderm) doxycycline hyclate 100 mg tablet 100 mg PO Q12H 10 da ys #20 tabs 06/09/25 Allergies Allergy/AdvReac Type Severity Reaction Status Date / Time Penicillins (PENICILLINS) Allergy Unknown NAUSEA & Verified 06/09/25 14:24 VOMITING shellfish derived (SHELLFISH Allergy Unknown ANAPHYLAXIS Verified 06/09/25 14:24 DERIVED) Review of Systems 2 Review of Systems: Yes all other systems are reviewed and are negative [facility] Past Medical History Medical History IBS (irritable bowel syndrome) Migraine Social History Social History Alcohol intake: current Alcohol intake frequency: does not drink Physical Exam ED Vital Signs: Vital Signs - 24 hr 06/09/25 14:23 Temperature 98.5 F Pulse Rate 81 Respiratory Rate 18 Blood Pressure 144/89 H Pulse Oximetry 94 Oxygen Delivery Method Room Air BMI result Body Mass Index 30.5 Vital signs revealed an elevated blood pressure of 144/89 otherwise unremarkable Exam: General: Awake, alert in no distress Head: Normocephalic, atraumatic EENT: PERRL, Lids normal, sclera normal, conjunctiva normal, nose normal , ears normal, throat without erythema or exudates Neck: Supple, no adenopathy Lung: breath sounds symmetric, no wheezing, rales or rhonchi Chest: symmetric movement, nontender Heart: regular rate and rhythm, normal S1, S2 no murmurs or rubs Abdomen: soft, non-tender, nondistended, normal bowel sounds Back: no vertebral tenderness, no CVAT Extremities: no deformities, moves all extremities symmetrically Skin: No rash noted on back, chest, abdomen, arms, hands Neuro: Awake, alert, oriented, normal speech Psych: Pleasant, cooperative Course Course Course Narrative: This is a rapid medical exam performed by Anders Christian NP: Additional HPI, ROS, PE not included below will be deferred to primary provider. Patient is a 30-year-old male presenting to the ED with complaint of neck pain and fever, fatigue. Last week returned from vacation, had a sore throat with white spots, tested neg for strep but was treated with abx. Yesterday couldn't turn head left or right. Moving head without difficulty in triage, no nuchal rigidity. Afebrile in triage. Plan: labs, monospot Medical Decision Making Medical Decision Making [facility] Narrative: 30-year-old trans female to male who presents emergency department for evaluation of intermittent neck pain, sweats, chills, lower back pain, joint pain, muscle pain, fatigue, increase tiredness times 1 week. The patient states that he was vacationing on the [facility] from to Monday (05/29 2024 to 06/01/2025). He states that while he was at the [facility], he ?hooked up? with other men. He did perform oral sex. He states that on 06/01/2020 5 gauge did develop a sore throat. He was seen by his PCP who noted erythema and white spots in the back of his throat. Patient was given a Zithromax Z-Ashok he states that 1 day after taking the Z-Ashok his sore throat symptoms resolved. He has not noticed a rash on his body. He did not notice any recent tick bite or insect bite while he was on the [facility]. The patient states that his PCP did do a throat swab for gonorrhea and chlamydia which was negative. The patient does use HIV PEP. He states that he was drinking alcohol while I was on the [facility]. Vital signs revealed an elevated blood pressure otherwise unremarkable. Physical examination was unremarkable. Differential diagnosis: ?Includes but is not limited to viral syndrome, gonorrhea, chlamydia, syphilis, hepatitis A, B, C, HIV, tick-borne illness, bacteremia Course: 21:51 My interpretation patient's laboratory evaluation is as follows: CBC was normal with a WBC of 5800, H&H of 16 and 46.9 and platelet count of 208,000. CMP was normal except for an elevated AST, ALT and alk-phos of 185, 402 and 159. Tarrant test was negative. Given his elevated LFTs I am concerned that he may have hepatitis-C or anaplasmosis. Also, given his symptoms and recent sexual activity, concerned that he may have HIV disease, gonorrhea or chlamydia. Therefore, I ordered the following tests: Gonorrhea/chlamydia urine, syphilis, hepatitis panel, tick- borne illness panel, HIV, blood cultures x2, CRP, ESR. Given the high prevalence of tick-borne illness on the [facility], and I did discuss empiric treatment with the patient and he agreed with this treatment. Patient was given doxycycline 100 mg orally here in the emergency department. He was given a prescription for doxycycline 100 mg q.12 hours times 10 days. Patient was advised to follow up with his PCP for further evaluation. I did tell the patient that we would contact him if any of his test came back positive but the patient also has access to the patient portal and I advised him to check the patient portal over the next week to see if any the above ordered tests come back positive. Admission/Observation Consideration of admission/observation: Escalation of care including admission/observation considered (Yes) Lab Data MDM Lab Attestation statement: I reviewed the patient's lab results. 06/09/25 14:41 06/09/25 14:41 Labs: Lab Results 06/09/25 Range/Units 14:41 WBC 5.8 (4.8-10.8) X10*3/uL RBC 4.69 (4.60-5.80) X10*6/uL Hgb 16.0 (14.0-18.0) g/dl Hct 46.9 (42.0-52.0) % MCV 100.0 H (80.0-98.0) fL MCH 34.1 H (27.0-33.0) pg MCHC 34.1 (31.0-36.0) g/dl RDW 12.5 (11.0-16.0) % Plt Count 208 (160-400) X10*3/uL MPV 9.6 (9.4-12.4) fL Immature Gran % (Auto) Cancelled Neut % (Auto) Cancelled Lymph % (Auto) Cancelled Tarrant % (Auto) Cancelled Eos % (Auto) Cancelled Baso % (Auto) Cancelled Lymph # (Auto) Cancelled Tarrant # (Auto) Cancelled Eos # (Auto) Cancelled Baso # (Auto) Cancelled Abs Immat Gran (auto) Cancelled Absolute Neuts (auto) Cancelled Absolute Nucleated RBC 0.000 (0.0-0.012) X10*3/uL Nucleated RBC % (auto) 0.0 (0.0-0.2) /100WBC Neutrophils % (Manual) 40 L (45-73) % Band Neutrophils % 2 L (3-5) % Lymphocytes % (Manual) 34 (20-40) % Atypical Lymphs % (Man) 9 H (0-6) % Monocytes % (Manual) 13 H (2-11) % Eosinophils % (Manual) 2 (0-4) % Abs Neuts (Manual) 2.4 (2.0-8.3) X10*3/uL Lymphocytes # (Manual) 2.0 (1.2-4.9) X10*3/uL Atyp Lymphs # (Manual) 0.5 x10*3/uL Monocytes # (Manual) 0.8 (0.1-1.2) X10*3/uL Eosinophils # (Manual) 0.1 (0.0-0.4) X10*3/uL Platelet Estimate NORMAL (NORMAL) Giant Platelets PRESENT Plt Morphology Comment NOTED RBC Morphology NOTED Tear Drop Cells 2+ (3-5) /OIF Sodium 139 (135-145) mmol/L Potassium 4.4 (3.3-5.1) mmol/L Chloride 102 (96-108) mmol/L Carbon Dioxide 29 (22-29) mmol/L Anion Gap 12 (12-20) BUN 13 (9-16) mg/dL Creatinine 0.94 (0.5-1.4) mg/dL Estim Creat Clear Calc 119.0 Estimated GFR > 60 Random Glucose 109 (60-115) mg/dL Calcium 9.7 (8.4-10.2) mg/dL Total Bilirubin 0.5 (0.0-1.0) mg/dL AST 185 H (5-37) U/L ALT 402 H (0-40) U/L Alkaline Phosphatase 159 H (39-117) U/L Total Protein 7.8 (6.5-8.0) g/dL Albumin 4.5 (3.5-5.0) g/dL Monoscreen Negative (Negative) Prescription Management I considered prescription management with: Antibiotic (Doxycycline) Discharge Plan Discharge Clinical Impression: Myalgia, Arthralgia, Fatigue, Abnormal LFTs (liver function tests) Patient Disposition: Home, Self-Care Additional Instructions: At this time, I do not have a clear cause for your symptoms but I am concerned that you may have a tick-borne illness (anaplasmosis) especially since you spent time at [facility]. Therefore I am going to treat you with doxycycline 100 mg pills, 1 pill every 12 hours times 10 days. Make sure you finish the full 10 day course even if all of your tick-borne illness tests are negative. Sometimes these tests can be negative and you still have the disease since the the ability for these test to detect tick-borne disease (sensitivity) is not 100%. Your blood work did reveal elevated liver tests (AST, ALT and alkaline phosphatase). These tests can sometimes be elevated due to a tick-borne illness ( anaplasmosis) and sometimes can be elevated due to viral infections such as hepatitis A, B or C. Take ibuprofen 200 mg pills, 2 pills (400 mg) every 6 hours as needed for pain or fever. You were tested today for urine gonorrhea and chlamydia, syphilis, hepatitis A, B, C panel, tick-borne illness panel, HIV, CRP, ESR, blood cultures x2. These tests will not come back today and may come back over the next week. I want you to check these results on the patient portal and I want you to follow up with your doctor for re-evaluation within 1 week. Follow-up with your doctor in 7 days. Please return to the emergency department if your symptoms get worse or if you develop any symptoms that are concerning to you. I sent your prescription to the [facility] on [facility] in [place] Prescriptions: New doxycycline hyclate 100 mg tablet 100 mg PO Q12H 10 Days Qty: 20 0RF No Action cefuroxime axetil 500 mg tablet 500 mg PO Q12H Qty: 14 0RF cephalexin 500 mg capsule 500 mg PO TID 7 Days Qty: 21 0RF cyclobenzaprine 5 mg tablet 5 mg PO Q8H Qty: 7 0RF lidocaine [Lidoderm] 5 % adhesive patch,medicated 1 patch topical DAILY Qty: 15 0RF Rx Instructions: leave on most painful area for up to 12 hrs Print Language: Urdu
[2025-06-09 14:23] VITALS: BP 144/89; PULSE 81; RESP 18; TEMP 36.9; O2SAT 94; BMI 30.5
[2025-06-09 14:47] LABS: Hematocrit 46.9 % (42.0-52.0); Hemoglobin 16.0 g/dl (14.0-18.0); Mean Corpuscular HGB Conc 34.1 g/dl (31.0-36.0); Mean Corpuscular Hemoglobin 34.1 pg (27.0-33.0); Mean Corpuscular Volume 100.0 fL (80.0-98.0); NRBC Abs Auto 0.000 X10*3/uL (0.0-0.012); NRBC Pct Auto 0.0 /100WBC (0.0-0.2); Platelet Count 208 X10*3/uL (160-400); Red Blood Count 4.69 X10*6/uL (4.60-5.80); White Blood Count 5.8 X10*3/uL (4.8-10.8)
[2025-06-09 15:09] LABS: Alanine Aminotransferase 402 U/L (0-40); Albumin Level 4.5 g/dL (3.5-5.0); Alkaline Phosphatase 159 U/L (39-117); Anion Gap 12 (12-20); Aspartate Amino Transferase 185 U/L (5-37); Blood Urea Nitrogen 13 mg/dL (9-16); Calcium 9.7 mg/dL (8.4-10.2); Carbon Dioxide 29 mmol/L (22-29); Chloride 102 mmol/L (96-108); Creatinine Clr Calc Pharmacy 119.0; Estimated Glomerular Filt Rate > 60; Potassium 4.4 mmol/L (3.3-5.1); Sodium 139 mmol/L (135-145); Total Protein 7.8 g/dL (6.5-8.0)
[2025-06-09 15:24] LABS: Atypical Lymph Absolute Manual 0.5 x10*3/uL; Atypical Lymphs Percent Manual 9 % (0-6); Band Neutrophils Percent 2 % (3-5); Eosinophils Absolute Manual 0.1 X10*3/uL (0.0-0.4); Eosinophils Percent Manual 2 % (0-4); Lymphocytes Absolute Manual 2.0 X10*3/uL (1.2-4.9); Lymphocytes Percent Manual 34 % (20-40); Monocytes Absolute Manual 0.8 X10*3/uL (0.1-1.2); Monocytes Percent Manual 13 % (2-11); Neutrophils Absolute Manual 2.4 X10*3/uL (2.0-8.3); Neutrophils Percent Manual 40 % (45-73); RBC Morphology NOTED
[2025-06-09 15:25] LABS: Tear Drop Cells 2+ (3-5) /OIF
[2025-06-09 22:00] VITALS: BP 143/90; PULSE 78; RESP 16; TEMP 36.9; O2SAT 98
--- NOTE | 2025-06-09 22:08 | PC.NURSE ---
pt medicated per mar, tolerated whole well with water. pt ambulatory to bathroom with steady gait and given cup for urine
[2025-06-09 22:27] VITALS: BP 143/90; PULSE 78; RESP 16; TEMP 36.9; O2SAT 98
[2025-06-10 03:41] LABS: Syphilis Screen Nonreactive (Nonreactive)
[2025-06-10 03:56] LABS: HBS Num1 2.81 mIU/mL (0-7.99); HBc Num1 0.10 S/CO (0.00-0.79); HBsAGNum1 0.37 S/CO (0.00-0.99); HIV Num 1 0.09 S/CO (0.00-0.99); Hepatitis A Antibody IgM 0.19 Index (0-0.79); Hepatitis B Surface Antigen Negative (Negative); ~HepC Num1 0.25 S/CO (0.00-0.79); ~Hepatitis A Antibody IgM Nonreactive (Nonreactive); ~Hepatitis B Surface Antibody NONREACTIVE (Nonreactive); ~Hepatitis C Antibody Nonreactive (Nonreactive)
[2025-06-10 05:05] LABS: CT PCR Urine NOT DETECTED (Not Detect.); NG PCR Urine NOT DETECTED (Not Detect.)
[2025-06-11 17:44] LABS: A. Phagocytphilium DNA,RT-PCR NOT DETECTED (NOT DETECTED); Babesia Microti DNA, RT-PCR NOT DETECTED (NOT DETECTED); Borrelia Miyamotoi,DNA RT-PCR NOT DETECTED (NOT DETECTED); E.Chaffeensis DNA RT-PCR NOT DETECTED (NOT DETECTED); Lyme(Borrelia ssp)DNA RT-PCR NOT DETECTED (NOT DETECTED)
== END 2025-06-09 22:28 | disposition home or self-care (01) ==
PROVIDERS: Registered Nurse Emergency; Emergency Provider Emergency Medicine Emergency Medical Services; PCP Nurse Practitioner Family
DX: M79.10 Myalgia, unspecified site (principal); R53.83 Other fatigue; R78.81 Bacteremia; M54.2 Cervicalgia; R79.89 Other specified abnormal findings of blood chemistry; Z79.899 Other long term (current) drug therapy
CPT/HCPCS: 36415; 80053; 85007; 85025; 85027; 85652; 86140; 86308; 86704; 86706; 86709; 86780; 86803; 87040; 87205; 87340; 87389; 87468; 87469; 87478; 87484; 87491; 87591; 87798; 99284

== ENCOUNTER 2025-06-13 20:10 | Inpatient (IN) | payer OTHER, SELFPAY ==
--- NOTE | ~2025-06-13 | CT_ITS ---
CLINICAL HISTORY: diarrhea, worsening liver fx, fever, Hepatitis - CT abdomen and pelvis with contrast Indication: Diarrhea, liver disease, hepatitis Comparison: CR - XR CHEST 2V - 05/10/25 12:59 EDT Findings: No consolidation or effusion. Lung bases are clear. Hepatic parenchyma is normal. Gallbladder is decompressed. Pancreas is normal. Spleen is normal. Adrenal glands are normal. Kidneys are normal. No nephrolithiasis or hydroureter. Right kidney demonstrates interpolar renal cysts, subcentimeter. Bladder is normal. No bladder lithiasis. Stomach and small bowel are normal. No focal bowel wall thickening. Appendix is normal. Cecum and transverse colon demonstrate moderate stool burden. Descending and sigmoid colon are normal. No evidence of diverticulitis. Rare scattered diverticuli. Pelvic contents are unremarkable. Uterus is normal. No adnexal masses. There is normal vascular enhancement. No adenopathy. Inguinal canals are normal. The bones are intact. IMPRESSION: No acute findings. No focal abnormal wall thickening. No evidence of diverticulitis. This document has been electronically signed by: Kehinde Rosas III, MD PHD on 06/14/2025 01:13:44
[2025-06-13 20:11] VITALS: BP 139/87; PULSE 76; RESP 15; TEMP 36.9; O2SAT 97; BMI 30.4
[2025-06-13 20:28] LABS: Hematocrit 43.7 % (42.0-52.0); Hemoglobin 15.0 g/dl (14.0-18.0); Mean Corpuscular HGB Conc 34.3 g/dl (31.0-36.0); Mean Corpuscular Hemoglobin 33.6 pg (27.0-33.0); Mean Corpuscular Volume 98.0 fL (80.0-98.0); NRBC Abs Auto 0.000 X10*3/uL (0.0-0.012); NRBC Pct Auto 0.0 /100WBC (0.0-0.2); Platelet Count 290 X10*3/uL (160-400); Red Blood Count 4.46 X10*6/uL (4.60-5.80); White Blood Count 8.8 X10*3/uL (4.8-10.8)
[2025-06-13 20:42] LABS: Alanine Aminotransferase 746 U/L (0-40); Albumin Level 4.5 g/dL (3.5-5.0); Alkaline Phosphatase 172 U/L (39-117); Anion Gap 10 (12-20); Aspartate Amino Transferase 290 U/L (5-37); Blood Urea Nitrogen 17 mg/dL (9-16); Calcium 9.6 mg/dL (8.4-10.2); Carbon Dioxide 29 mmol/L (22-29); Chloride 105 mmol/L (96-108); Creatinine Clr Calc Pharmacy 104.3; Estimated Glomerular Filt Rate > 60; Lipase 38 U/L (8-78); Potassium 4.0 mmol/L (3.3-5.1); Sodium 140 mmol/L (135-145); Total Protein 8.1 g/dL (6.5-8.0)
[2025-06-13 20:53] LABS: Atypical Lymph Absolute Manual 0.8 x10*3/uL; Atypical Lymphs Percent Manual 9 % (0-6); Band Neutrophils Percent 3 % (3-5); Basophils Abs Manual 0.1 X10*3/uL (0.0-0.2); Basophils Percent Manual 1 % (0-2); Eosinophils Absolute Manual 0.2 X10*3/uL (0.0-0.4); Eosinophils Percent Manual 2 % (0-4); Lymphocytes Absolute Manual 3.5 X10*3/uL (1.2-4.9); Lymphocytes Percent Manual 40 % (20-40); Monocytes Absolute Manual 0.4 X10*3/uL (0.1-1.2); Monocytes Percent Manual 4 % (2-11); Neutrophils Absolute Manual 3.9 X10*3/uL (2.0-8.3); Neutrophils Percent Manual 41 % (45-73)
[2025-06-13 20:54] LABS: RBC Morphology NOTED; Tear Drop Cells 2+ (3-5) /OIF
[2025-06-13 20:55] LABS: Basophilic Stippling 1+ (0-2) /OIF
--- NOTE | 2025-06-13 22:41 | ED_ITS ---
HPI - General Adult General Chief complaint: Recheck/Abnormal Lab/Rx Stated complaint: abnormal labs Time Seen by Provider: 06/13/25 21:34 Source: patient Limitations: no limitations History of Present Illness ED Provider: Aimee Jiménez PA-C HPI narrative: 30-year-old trans female to male patient with no underlying medical conditions, presents with ongoing fatigue and malaise. Patient states he was seen in our emergency department the end of April, diagnosed with pill esophagitis. Patient traveled to [facility] May 29 through the , following his trip, he developed neck pain, night sweats, chills, generalized myalgias. Patient was tested for strep throat, the screening was negative, his primary care place him on a Z-Ashok. During his vacation, he admits to high-risk sexual behavior, that he was ?hooking up with other men, performing oral sex?. The pharyngitis has since resolved. Patient returned to our emergency department secondary to refractory symptoms; second ED visit 06/09. He was noted to have elevation of his liver enzymes, he was tested for a tick panel, syphilis, gonorrhea, chlamydia, hepatitis A, B and C. patient states following this emergency department visit, he followed up with primary care for a recheck, his liver function tests were further elevated, he was advised to come to the emergency department for further assessment. The patient states he has been having nausea, poor appetite and diarrhea. He has had these symptoms since he left [facility]. Denies hospitalization, or use of antibiotics. Denies sick contacts with similar symptoms. Related Data Previous Rx's ?Medication ?Instructions ?Recorded cefuroxime axetil 500 mg tablet 500 mg PO Q12H #14 tab s 01/31/21 cephalexin 500 mg capsule 500 mg PO TID 7 days #21 cap s 11/03/23 cyclobenzaprine 5 mg tablet 5 mg PO Q8H #7 tabs lidocaine 5 % topical patch 1 patch topical DAILY #15 ea 08/01/24 (Lidoderm) doxycycline hyclate 100 mg tablet 100 mg PO Q12H 10 da ys #20 tabs 06/09/25 Allergies Allergy/AdvReac Type Severity Reaction Status Date / Time Penicillins (PENICILLINS) Allergy Unknown NAUSEA & Verified 06/13/25 20:15 VOMITING shellfish derived (SHELLFISH Allergy Unknown ANAPHYLAXIS Verified 06/13/25 20:15 DERIVED) Review of Systems 2 Review of Systems: Yes all other systems are reviewed and are negative Constitutional: Constitutional: Reports chills, Reports fatigue, Denies fever(s), Reports malaise and Reports night sweats ENT: Denies sore throat Cardiovascular: Cardiovascular: Denies chest pain and Denies dyspnea Respiratory: Respiratory: Denies cough and Denies dyspnea Gastrointestinal: Gastrointestinal: Denies abdominal pain, Reports diarrhea, Reports nausea and Denies vomiting Genitourinary: Genitourinary: Denies dysuria Musculoskeletal: Musculoskeletal: Reports myalgias Endocrine: Endocrine: Reports fatigue [facility] Past Medical History Attestation statement: The following information was validated with the patient. Medical History IBS (irritable bowel syndrome) Migraine Social History Social History Alcohol intake: current Alcohol intake frequency: holidays/special occasions only Smoked in Last 30 Days: No Use of substances other than those prescribed or required for medical reasons: No Advance Directives: No Advance Directives Information Provided: No Do you have a plan to hurt others: No Plan Physical Exam ED Vital Signs: Vital Signs - 24 hr 06/13/25 20:11 06/14/25 00:47 Temperature 98.5 F 98.3 F Pulse Rate 76 76 Respiratory Rate 15 18 Blood Pressure 139/87 124/81 Pulse Oximetry 97 96 Oxygen Delivery Method Room Air Room Air BMI result Body Mass Index 30.4 Const Other: Alert well-appearing Orientation/consciousness: patient oriented x3 Resp Effort & Inspection: normal respiratory effort Cardio Other: Normal peripheral perfusion GI Other: Abdomen is soft, nontender no guarding no distention Skin Other: Warm dry no rash Neuro General: patient oriented x3, gait normal, no focal motor deficits and CN's II- XI intact bilaterally Psych Other: Cooperative Medications Administered Discontinued Medications Generic Name Dose Route Start Last Admin Trade Name Freq PRN Reason Stop Dose Admin Sodium Chloride 1,000 mls @ 999 mls/hr 06/13/25 23:00 06/13/25 22:59 Ns IV 06/14/25 00:00 999 mls/hr .Q1H1M WANDA Administration Iohexol 85 ml 06/14/25 00:00 06/14/25 00:02 Iohexol 350 Mg/Ml 100 Ml Infus..Btl IV 06/14/25 00:01 85 ml ONCE ONE Administration Medical Decision Making Medical Decision Making [facility] Narrative: 30-year-old trans female to male patient with no underlying medical conditions, presents with ongoing fatigue and malaise. Patient states he was seen in our emergency department the end of April, diagnosed with pill esophagitis. Patient traveled to [facility] May 29 through the , following his trip, he developed neck pain, night sweats, chills, generalized myalgias. Patient was tested for strep throat, the screening was negative, his primary care place him on a Z-Ashok. During his vacation, he admits to high-risk sexual behavior, that he was ?hooking up with other men, performing oral sex?. The pharyngitis has since resolved. Patient returned to our emergency department secondary to refractory symptoms; second ED visit 06/09. He was noted to have elevation of his liver enzymes, he was tested for a tick panel, syphilis, gonorrhea, chlamydia, hepatitis A, B and C. patient states following this emergency department visit, he followed up with primary care for a recheck, his liver function tests were further elevated, he was advised to come to the emergency department for further assessment. The patient states he has been having nausea, poor appetite and diarrhea. He has had these symptoms since he left [facility]. Denies hospitalization, or use of antibiotics. Denies sick contacts with similar symptoms. No underlying medical conditions History: Per patient I have considered the following differential diagnoses: Traveler's diarrhea, parasitic infection, C diff, viral syndrome , alcohol hepatitis, liver dysfunction of unknown etiology Plan: I reviewed the patient's labs, he has screen negative thus far for all testing that was performed on June 09. He has yet to have imaging, his LFTs are further elevated at this time. Adding a CT abdomen and pelvis. He does not have an alcohol abuse history, he admits to social drinking. Stool cultures have yet to be obtained, he could have a parasitic infection as well. This does not sound like C diff to me, but we will add on C diff PCR, GI panel and ova parasite. Given worsening liver function, adding on PT INR. I have independently reviewed the following tests: Labs: From recent visit 06/09 T palladium nonreactive, tick-borne panel negative, chlamydia negative, gonorrhea negative, hepatitis a, B, C, nonreactive, mononucleosis negative, Labs from today: C diff in process, ova parasite in process, GI panel yet to be collected, no leukocytosis, not anemic, AST 290, ALT 746, alk phos 172, T bilirubin normal at 0.4, lipase 38 CT abdomen and pelvis:indings: No consolidation or effusion. Lung bases are clear. Hepatic parenchyma is normal. Gallbladder is decompressed. Pancreas is normal. Spleen is normal. Adrenal glands are normal. Kidneys are normal. No nephrolithiasis or hydroureter. Right kidney demonstrates interpolar renal cysts, subcentimeter. Bladder is normal. No bladder lithiasis. Stomach and small bowel are normal. No focal bowel wall thickening. Appendix is normal. Cecum and transverse colon demonstrate moderate stool burden. Descending and sigmoid colon are normal. No evidence of diverticulitis. Rare scattered diverticuli. Pelvic contents are unremarkable. Uterus is normal. No adnexal masses. There is normal vascular enhancement. No adenopathy. Inguinal canals are normal. The bones are intact. IMPRESSION: No acute findings. No focal abnormal wall thickening. No evidence of diverticulitis. Lab Data 06/13/25 20:21 06/13/25 20:21 Labs: Lab Results 06/13/25 Range/Units 20:21 WBC 8.8 (4.8-10.8) X10*3/uL RBC 4.46 L (4.60-5.80) X10*6/uL Hgb 15.0 (14.0-18.0) g/dl Hct 43.7 (42.0-52.0) % MCV 98.0 (80.0-98.0) fL MCH 33.6 H (27.0-33.0) pg MCHC 34.3 (31.0-36.0) g/dl RDW 12.3 (11.0-16.0) % Plt Count 290 D (160-400) X10*3/uL MPV 9.6 (9.4-12.4) fL Immature Gran % (Auto) Cancelled Neut % (Auto) Cancelled Lymph % (Auto) Cancelled Anderson % (Auto) Cancelled Eos % (Auto) Cancelled Baso % (Auto) Cancelled Lymph # (Auto) Cancelled Anderson # (Auto) Cancelled Eos # (Auto) Cancelled Baso # (Auto) Cancelled Abs Immat Gran (auto) Cancelled Absolute Neuts (auto) Cancelled Absolute Nucleated RBC 0.000 (0.0-0.012) X10*3/uL Nucleated RBC % (auto) 0.0 (0.0-0.2) /100WBC Neutrophils % (Manual) 41 L (45-73) % Band Neutrophils % 3 (3-5) % Lymphocytes % (Manual) 40 (20-40) % Atypical Lymphs % (Man) 9 H (0-6) % Monocytes % (Manual) 4 (2-11) % Eosinophils % (Manual) 2 (0-4) % Basophils % (Manual) 1 (0-2) % Abs Neuts (Manual) 3.9 (2.0-8.3) X10*3/uL Lymphocytes # (Manual) 3.5 (1.2-4.9) X10*3/uL Atyp Lymphs # (Manual) 0.8 x10*3/uL Monocytes # (Manual) 0.4 (0.1-1.2) X10*3/uL Eosinophils # (Manual) 0.2 (0.0-0.4) X10*3/uL Basophils # (Manual) 0.1 (0.0-0.2) X10*3/uL Platelet Estimate NORMAL (NORMAL) Plt Morphology Comment NORMAL RBC Morphology NOTED Basophilic Stippling 1+ (0-2) /OIF Tear Drop Cells 2+ (3-5) /OIF Smear Tech's Comments MANUAL DIFF Sodium 140 (135-145) mmol/L Potassium 4.0 (3.3-5.1) mmol/L Chloride 105 (96-108) mmol/L Carbon Dioxide 29 (22-29) mmol/L Anion Gap 10 L (12-20) BUN 17 H (9-16) mg/dL Creatinine 1.07 (0.5-1.4) mg/dL Estim Creat Clear Calc 104.3 Estimated GFR > 60 Random Glucose 110 (60-115) mg/dL Calcium 9.6 (8.4-10.2) mg/dL Total Bilirubin 0.4 (0.0-1.0) mg/dL AST 290 H (5-37) U/L ALT 746 H (0-40) U/L Alkaline Phosphatase 172 H (39-117) U/L Total Protein 8.1 H (6.5-8.0) g/dL Albumin 4.5 (3.5-5.0) g/dL Lipase 38 (8-78) U/L Discharge Plan Discharge Clinical Impression: Hepatic dysfunction, Diarrhea Patient Disposition: Admitted As Inpatient Print Language: [place]se
[2025-06-14] VITALS (7 sets, daily range): BP systolic 110–134; BP diastolic 56–88; PULSE 68–85; RESP 16–18; TEMP 36.6–36.8; O2SAT 94–100; BMI 30.4
[2025-06-14] MEDS: iohexoL 350 MG/ML 100 ML INFUS..BTL 85 ML IV (00:02)
[2025-06-14 03:02] LABS: CDiff Gene PCR NEGATIVE (Negative)
--- NOTE | 2025-06-14 03:13 | PM.IMHP ---
History of Present Illness Date of Service: 06/14/25 Attending physician on admission: Jarod Phipps Chief Complaint: fatigue, sweats Patient is a 30-year-old trans female to male patient with a past medical history significant for hypertension, anxiety/depression and irritable bowel syndrome, who presented to the ED due to fatigue and chills with lack of appetite, sent by his PCP due to elevated LFTs. He was recently seen here for sore throat, malaise and chills, strep test was negative as well as tick panel, mono, STI testing, hepatitis however LFTs were elevated at that time. He was vacationing at [facility] from 05/29 through 06/01 and reported unprotected oral sex with other men. He reports a sore throat prior to these events. He was treated with a Zithromax although strep test was negative. The sore throat resolved shortly after starting this. He denies any rash, chest pain, shortness of breath, abdominal pain. The patient reported that his PCP did do a throat swab for gonorrhea and chlamydia which came back negative. He takes HIV prep medication, has been on this for the past 4 months. Reports he was drinking heavily while on the [facility], he does not drink at baseline. Viral testing has all been negative as well. Review of Systems Constitutional: Constitutional: Reports fatigue, Denies headache(s), Reports lethargy and Reports poor appetite Comments: sweats but no measured fever ENT: Denies dizziness, Denies headache(s) and Denies nasal congestion Cardiovascular: Cardiovascular: Denies chest pain, Denies leg ulcers, Denies leg edema, Denies lightheadedness and Denies dyspnea Respiratory: Respiratory: Denies dyspnea and Denies wheezing Gastrointestinal: Gastrointestinal: Denies abdominal pain, Reports bloating, Reports diarrhea (at baseline), Denies nausea and Denies vomiting Genitourinary: Genitourinary: Denies hematuria, Denies oliguria, Denies genital lesions, Denies dysuria and Denies urinary urgency Musculoskeletal: Musculoskeletal: Denies myalgias Integumentary/Breasts: Skin/Breast: Denies rash Neurologic: Denies confusion, Denies dizziness and Denies headache(s) Psychiatric: Psychiatric: Denies confusion Endocrine: Endocrine: Reports fatigue Hematologic/Lymphatic: Hematologic/Lymphatic: Denies easy bleeding and Denies easy bruising Allergic/Immunologic: Allergic/Immunologic: Denies wheezing PMFSH Medical History IBS (irritable bowel syndrome) Migraine Functional capacity: independent ambulation Social History Alcohol intake: current Alcohol intake frequency: holidays/special occasions only Patient Tobacco Use Status: Tobacco use Unknown Smoked in Last 30 Days: No Use of substances other than those prescribed or required for medical reasons: No Advance Directives: No Advance Directives Information Provided: No Do you have a plan to hurt others: No Plan Narrative: No smoking or drug use. Social occasional alcohol Meds Allergies Allergy/AdvReac Type Severity Reaction Status Date / Time Penicillins (PENICILLINS) Allergy Unknown NAUSEA & Verified 06/13/25 20:15 VOMITING shellfish derived (SHELLFISH Allergy Unknown ANAPHYLAXIS Verified 06/13/25 20:15 DERIVED) Physical Exam Vital Signs and Narrative: Vital Signs: Last Vital Signs Temp 98.3 F 06/14/25 00:47 Pulse 68 06/14/25 03:07 Resp 18 06/14/25 03:07 BP 134/88 06/14/25 03:07 Pulse Ox 95 06/14/25 03:07 O2 Del Method Room Air 06/14/25 03:07 BMI result Body Mass Index 30.4 General: AOx3, no acute distress Resp: CTA bilaterally CVS: S1, S2, RRR GI: +BS, mild rebound tenderness RUQ, no distention Skin: Warm, dry Neuro: Cranial nerves II-XII grossly intact bilaterally. Motor grossly intact bilaterally Extremities: No LE edema Psych: Appropriate affect Const: General: No confusion Orientation/consciousness: No confusion Neuro: General: No confusion Results Labs 06/13/25 20:21 06/13/25 20:21 Labs: Laboratory Results - last 24 hr 06/13/25 06/14/25 20:21 01:50 MCV 98.0 MCH 33.6 H MCHC 34.3 RDW 12.3 Plt Count 290 D MPV 9.6 Immature Gran % (Auto) Cancelled Neut % (Auto) Cancelled Lymph % (Auto) Cancelled Jennings % (Auto) Cancelled Eos % (Auto) Cancelled Baso % (Auto) Cancelled Lymph # (Auto) Cancelled Jennings # (Auto) Cancelled Eos # (Auto) Cancelled Baso # (Auto) Cancelled Abs Immat Gran (auto) Cancelled Absolute Neuts (auto) Cancelled Absolute Nucleated RBC 0.000 Nucleated RBC % (auto) 0.0 Neutrophils % (Manual) 41 L Band Neutrophils % 3 Lymphocytes % (Manual) 40 Atypical Lymphs % (Man) 9 H Monocytes % (Manual) 4 Eosinophils % (Manual) 2 Basophils % (Manual) 1 Abs Neuts (Manual) 3.9 Lymphocytes # (Manual) 3.5 Atyp Lymphs # (Manual) 0.8 Monocytes # (Manual) 0.4 Eosinophils # (Manual) 0.2 Basophils # (Manual) 0.1 Platelet Estimate NORMAL Plt Morphology Comment NORMAL RBC Morphology NOTED Basophilic Stippling 1+ (0-2) Tear Drop Cells 2+ (3-5) Smear Tech's Comments MANUAL DIFF Anion Gap 10 L Estim Creat Clear Calc 104.3 Estimated GFR > 60 Random Glucose 110 Calcium 9.6 Total Bilirubin 0.4 AST 290 H ALT 746 H Alkaline Phosphatase 172 H Total Protein 8.1 H Albumin 4.5 Lipase 38 C. difficile Tox B Gene NEGATIVE Assessment and Plan (1) Transaminitis: Status: Acute (2) Fatigue: Status: Acute Plan Patient is a 30-year-old trans female to male patient with a past medical history significant for hypertension, anxiety/depression and irritable bowel syndrome, who presented to the ED due to fatigue and chills with lack of appetite, sent by his PCP due to elevated LFTs. transaminitis, fatigue - no leukocytosis, vital signs stable, lactic acid and blood cultures x2 pending, recent blood culture positive for Gram-positive mary - abdominopelvic CT negative - C diff negative - GI panel and O+P pending - HIV pending - AST 290, ALT 746, alk-phos 172, T bili normal - recent negative workup including tick-borne panel, mono, STI testing, hepatitis A, B, C, HIV, strep - was recently treated prophylactically for strep with azithromycin as well as doxycycline for concern for tick-borne illness - vancomycin due to recent positive blood culture, penicillin allergy - ID consult - monitor CBC and BMP Hypertension - continue home meds Anxiety/depression - continue home meds Med rec pending Full code VTE prophylaxis: Lovenox Patient with worsening transaminitis with fatigue, source not identified, recent positive blood culture 1 of 2, requiring admission for at least 2 midnight stay for IV abx, further evaluation and Infectious Disease consultation. Quality Stroke Does the patient have a stroke diagnosis?: No VTE Prior VTE?: No VTE Risk Level:: Medical - moderate - high VTE Device Contraindication: Treatment Not Indicated VTE Drug Contraindication: N/A - Med Ordered
--- NOTE | 2025-06-14 03:23 | PC.NURSE ---
patient alert and oriented, resting quietly in room. only complaining of feeling tired. medicated per the MAR, provided with pillow and ear plugs. call torres within reach
[2025-06-14 03:30] LABS: INTERNATIONAL NORM RATIO 1.2 (0.9-1.1); Prothrombin Time 13.4 SEC (10.9-12.4)
[2025-06-14 03:49] LABS: HIV Num 1 0.06 S/CO (0.00-0.99)
[2025-06-14 04:58] LABS: Hematocrit 42.3 % (42.0-52.0); Hemoglobin 14.4 g/dl (14.0-18.0); Mean Corpuscular HGB Conc 34.0 g/dl (31.0-36.0); Mean Corpuscular Hemoglobin 33.6 pg (27.0-33.0); Mean Corpuscular Volume 98.8 fL (80.0-98.0); NRBC Abs Auto 0.000 X10*3/uL (0.0-0.012); NRBC Pct Auto 0.0 /100WBC (0.0-0.2); Platelet Count 289 X10*3/uL (160-400); Red Blood Count 4.28 X10*6/uL (4.60-5.80); White Blood Count 8.4 X10*3/uL (4.8-10.8)
[2025-06-14 05:11] LABS: Alanine Aminotransferase 662 U/L (0-40); Albumin Level 4.2 g/dL (3.5-5.0); Alkaline Phosphatase 158 U/L (39-117); Anion Gap 13 (12-20); Aspartate Amino Transferase 222 U/L (5-37); Blood Urea Nitrogen 13 mg/dL (9-16); Calcium 9.2 mg/dL (8.4-10.2); Carbon Dioxide 24 mmol/L (22-29); Chloride 107 mmol/L (96-108); Creatinine Clr Calc Pharmacy 132.9; Estimated Glomerular Filt Rate > 60; Potassium 4.3 mmol/L (3.3-5.1); Sodium 140 mmol/L (135-145); Total Protein 7.4 g/dL (6.5-8.0)
[2025-06-14] MEDS: vancomycin/NS 2,000 MG/500 ML PLAST..BAG 250 MG IV (05:15)
--- NOTE | 2025-06-14 06:40 | PM.EVENT ---
Event Note Date of Service: 06/14/25 Event Note: pt reporting itchy palms, itching on head and face feels hot and red with vancomycin infusion about [address] through. stop now. hydroxyzine 25mg PO now and switch to doxy BID and ceftriaxone Q24H Time Spent With Patient Time: Total time managing care of this patient today ____ minutes.
--- NOTE | 2025-06-14 06:41 | PC.NURSE ---
patient states retirement through bag of vanco that he feels itchy on his palms and feet as well as noticed redness to his face. also states he feels hot. temp 98.0 orally, rachana has been paused. patient states he cannot take benadryl d/t adverse reactions to it. verbalized this to hospitalist.
--- NOTE | 2025-06-14 07:10 | PC.NURSE ---
patient reports improvement after stopping the vanco, face appears less red. states the itchiness has subsided.
[2025-06-14] MEDS: 0.9 % Sodium Chloride Flush 3 ML SYRINGE IVFLUSH ×3 (07:56→20:59)
--- NOTE | 2025-06-14 08:02 | PC.NURSE ---
medicated per the MAR, patient resting quietly at this time continues to offer no complaints
--- NOTE | 2025-06-14 08:27 | HO.PM.IMPN ---
Subjective Subjective Date of Service: 06/14/25 Interval History: f/u on Mal[place]ise, elevated LFTs still feel tired, LFTs are trending down Physical Exam Vital Signs: Vital Signs: Last Vital Signs Temp 98.0 F 06/14/25 07:58 Pulse 85 06/14/25 07:58 Resp 16 06/14/25 07:58 BP 118/72 06/14/25 07:58 Pulse Ox 100 06/14/25 07:58 O2 Del Method Room Air 06/14/25 07:58 BMI result Body Mass Index 30.4 General: AO X 3, no acute distress Resp: CTA bilateral CVS: S1,S2,RRR GI: +BS, NT, no distention Skin: No rash Neuro: motor grossly intact Psych: appropriate affect Objective Data Active Medications Acetaminophen (Acetaminophen 325 Mg Tablet) 650 mg PO Q6H PRN PRN Reason: Pain, Mild 1-3,fever,headache Calcium Carbonate (Calcium Carbonate 750 Mg Tab.Chew) 750 mg PO Q4H PRN PRN Reason: Heartburn Ceftriaxone Sodium (Ceftriaxone Sodium 1 Gm Vial) 1 gm IVPUSH Q24H [facility] Last Admin: 06/14/25 07:56 Dose: 1 gm Documented By: MARIA Enoxaparin Sodium (Enoxaparin Sodium 40 Mg/0.4 Ml Syringe) 40 mg SUBCUT Q24H [facility] Gabapentin (Gabapentin 300 Mg Capsule) 300 mg PO BEDTIME [facility] Last Admin: 06/14/25 03:22 Dose: 300 mg Documented By: MARIA Doxycycline Hyclate 100 mg/ (Sodium Chloride) 250 mls @ 166.67 mls/hr IV BID [facility] Lisinopril (Lisinopril 5 Mg Tablet) 5 mg PO BEDTIME [facility]; Protocol Last Admin: 06/14/25 03:22 Dose: 5 mg Documented By: MARIA Magnesium Hydroxide (Milk Of Magnesia 30 Ml Oral.Susp) 30 ml PO DAILY PRN PRN Reason: Constipation Melatonin (Melatonin 3 Mg Tablet) 6 mg PO BEDTIME PRN PRN Reason: Insomnia Ondansetron HCl (Ondansetron Hcl 4 Mg/2 Ml Vial) 4 mg IVPUSH Q8H PRN PRN Reason: Nausea and Vomiting Oxycodone HCl (Oxycodone Hcl Immed Release 5 Mg Tablet) 5 mg PO Q6H PRN PRN Reason: Pain, Severe (Pain Scale 7-10) Sodium Chloride (0.9 % Sodium Chloride Flush 3 Ml Syringe) 3 ml IVFLUSH QSHIFT [facility] Last Admin: 06/14/25 07:56 Dose: 3 ml Documented By: MARIA Tramadol HCl (Tramadol Hcl 50 Mg Tablet) 50 mg PO Q6H PRN PRN Reason: Pain, Moderate(Pain Scale 4-6) Labs 06/14/25 04:48 06/14/25 04:47 Labs: Laboratory Results - last 24 hr 06/13/25 06/14/25 06/14/25 20:21 01:50 03:05 MCV 98.0 MCH 33.6 H MCHC 34.3 RDW 12.3 Plt Count 290 D MPV 9.6 Immature Gran % (Auto) Cancelled Neut % (Auto) Cancelled Lymph % (Auto) Cancelled [place] % (Auto) Cancelled Eos % (Auto) Cancelled Baso % (Auto) Cancelled Lymph # (Auto) Cancelled [place] # (Auto) Cancelled Eos # (Auto) Cancelled Baso # (Auto) Cancelled Abs Immat Gran (auto) Cancelled Absolute Neuts (auto) Cancelled Absolute Nucleated RBC 0.000 Nucleated RBC % (auto) 0.0 Neutrophils % (Manual) 41 L Band Neutrophils % 3 Lymphocytes % (Manual) 40 Atypical Lymphs % (Man) 9 H Monocytes % (Manual) 4 Eosinophils % (Manual) 2 Basophils % (Manual) 1 Abs Neuts (Manual) 3.9 Lymphocytes # (Manual) 3.5 Atyp Lymphs # (Manual) 0.8 Monocytes # (Manual) 0.4 Eosinophils # (Manual) 0.2 Basophils # (Manual) 0.1 Platelet Estimate NORMAL Plt Morphology Comment NORMAL RBC Morphology NOTED Basophilic Stippling 1+ (0-2) Tear Drop Cells 2+ (3-5) Smear Tech's Comments MANUAL DIFF PT 13.4 H INR 1.2 H Anion Gap 10 L Estim Creat Clear Calc 104.3 Estimated GFR > 60 Random Glucose 110 Lactic Acid Calcium 9.6 Total Bilirubin 0.4 AST 290 H ALT 746 H Alkaline Phosphatase 172 H Total Protein 8.1 H Albumin 4.5 Lipase 38 TSH 1.97 Stl C. cayetanensis PCR Cancelled Stool Rotavirus A PCR Cancelled Stl Adenov F 40/41 PCR Cancelled Stool Astrovirus (PCR) Cancelled Stool Campylobacter PCR Cancelled Stool Cryptosporidium PCR Cancelled Stl Sh Tox Pr E STEC PCR Cancelled Stool E coli O157 PCR Cancelled Stl Enterotoxigenic E PCR Cancelled Stool EPEC (PCR) Cancelled Stool EAEC (PCR) Cancelled Stl E. histolytica PCR Cancelled Stool Giardia Lamblia PCR Cancelled Stl P. shigelloides PCR Cancelled Stool Salmonella PCR Cancelled Stool Sapovirus (PCR) Cancelled Stl Shigella/EIEC PCR Cancelled St Y.enterocolitica PCR Cancelled Stool Vibrio (PCR) Cancelled Stl Vibrio cholerae PCR Cancelled Stl Norovirus GI/GII PCR Cancelled C. difficile Tox B Gene NEGATIVE HIV 1&2 Ab/P24 Ag 4thGn Nonreactive 06/14/25 06/14/25 04:47 04:48 MCV 98.8 H MCH 33.6 H MCHC 34.0 RDW 12.2 Plt Count 289 MPV 9.7 Immature Gran % (Auto) Neut % (Auto) Lymph % (Auto) [place] % (Auto) Eos % (Auto) Baso % (Auto) Lymph # (Auto) [place] # (Auto) Eos # (Auto) Baso # (Auto) Abs Immat Gran (auto) Absolute Neuts (auto) Absolute Nucleated RBC 0.000 Nucleated RBC % (auto) 0.0 Neutrophils % (Manual) Band Neutrophils % Lymphocytes % (Manual) Atypical Lymphs % (Man) Monocytes % (Manual) Eosinophils % (Manual) Basophils % (Manual) Abs Neuts (Manual) Lymphocytes # (Manual) Atyp Lymphs # (Manual) Monocytes # (Manual) Eosinophils # (Manual) Basophils # (Manual) Platelet Estimate Plt Morphology Comment RBC Morphology Basophilic Stippling Tear Drop Cells Smear Tech's Comments PT INR Anion Gap 13 Estim Creat Clear Calc 132.9 Estimated GFR > 60 Random Glucose 92 Lactic Acid 0.9 Calcium 9.2 Total Bilirubin 0.4 AST 222 H ALT 662 H Alkaline Phosphatase 158 H Total Protein 7.4 Albumin 4.2 Lipase TSH Stl C. cayetanensis PCR Stool Rotavirus A PCR Stl Adenov F PCR Stool Astrovirus (PCR) Stool Campylobacter PCR Stool Cryptosporidium PCR Stl Sh Tox Pr E STEC PCR Stool E coli O157 PCR Stl Enterotoxigenic E PCR Stool EPEC (PCR) Stool EAEC (PCR) Stl E. histolytica PCR Stool Giardia Lamblia PCR Stl P. shigelloides PCR Stool Salmonella PCR Stool Sapovirus (PCR) Stl Shigella/EIEC PCR St Y.enterocolitica PCR Stool Vibrio (PCR) Stl Vibrio cholerae PCR Stl Norovirus GI/GII PCR C. difficile Tox B Gene HIV 1&2 Ab/P24 Ag 4thGn Assessment and Plan (1) Hepatic dysfunction: Status: Acute (2) Transaminitis: Status: Acute Plan Patient is a 30-year-old trans female to male patient with a past medical history significant for hypertension, anxiety/depression and irritable bowel syndrome, who presented to the ED due to fatigue and chills with lack of appetite, sent by his PCP due to elevated LFTs. transaminitis, fatigue - no leukocytosis, vital signs stable, lactic acid and blood cultures x2 pending, recent blood culture positive for Gram-positive mary - abdominopelvic CT negative - C diff negative - GI panel and O+P pending - HIV negative -LFTs trending down, see trend - recent negative workup including tick-borne panel, mono, STI testing, hepatitis A, B, C, HIV, strep - was recently treated prophylactically for strep with azithromycin as well as doxycycline for concern for tick-borne illness - Given Vanco for possible bacteremia, and may have reacted to it--for now hold Abx -He likely has a viral process - ID consult - monitor CBC and BMP Hypertension - continue home meds Anxiety/depression - continue home meds Med rec pending Full code VTE prophylaxis: Lovenox Patient with worsening transaminitis with fatigue, source not identified, recent positive blood culture 1 of 2, requiring admission for at least 2 midnight stay for IV abx, further evaluation and Infectious Disease consultation. Quality Stroke Does the patient have a stroke diagnosis?: No VTE Prior VTE?: No VTE Risk Level:: Medical - moderate - high VTE Device Contraindication: Treatment Not Indicated VTE Drug Contraindication: N/A - Med Ordered
--- NOTE | 2025-06-14 10:03 | PM.GICN ---
History of Present Illness Data of Consult Service Date: 06/14/25 Requesting physician: Elissa Saez Primary Care Provider: Marichuy Stapleton NP [facility] Reason for consult: elevated lfts 30-year-old gentleman with past medical history of hypertension, irritable bowel syndrome, MSM, who presented to the hospital for fatigue, anorexia and elevated LFTs. Patient was seen in the ER earlier this week for neck pain, chills and diffuse joint pains and is returning on behest of ER provider and PCP for positive blood cultures. Patient reports that 2 weeks ago, he was in [place] where he did engaged in unprotected oral sex. On return, he notice sore throat with possible white exudates on his tonsils. He was given Z-Ashok by his PCP for possible tonsillitis. His symptoms of sore throat went away within a day, however after few days he developed neck stiffness with inability to move the neck at all with lower back pain, diffuse joint pains, chills and night sweats. He went to the emergency room on 06/09 for these complaints. He was given doxycycline by the ER provider for possible tick tick-borne illness. On that visit, also had blood cultures drawn that came back positive for Gram-positive mary on 06/13. He was called by the emergency room provider and asked to come back. His chills, neck stiffness, and joint pains have improved. Night sweats remain. Appetite is getting better. Gastroenterology was called because his AST and ALT have been noted to be elevated since last week. With AST initially 185, and 222 today. ALT for 402 initially and now up to 662. Peak at 746. Bilirubin has remained normal. Alk-phos is also trending down. CT abdomen and pelvis with IV contrast does not show any liver, biliary or pancreatic abnormality. Family history positive for Crohn's disease and ankylosing spondylitis in father. Otherwise no history of liver disease. He does report increased alcohol intake during his trip to [facility]. Review of Systems Review of Systems: Yes all other systems are reviewed and are negative PMFSH Past Medical History Medical History IBS (irritable bowel syndrome) Migraine Social History Social History Household Members: None Housing: Apartment Do you presently have visiting nurse or other home services: No Alcohol intake: current Alcohol intake frequency: holidays/special occasions only Patient Tobacco Use Status: Tobacco use Unknown Meds Allergies Allergy/AdvReac Type Severity Reaction Status Date / Time Penicillins (PENICILLINS) Allergy Unknown NAUSEA & Verified 06/13/25 20:15 VOMITING shellfish derived (SHELLFISH Allergy Unknown ANAPHYLAXIS Verified 06/13/25 20:15 DERIVED) vancomycin Allergy Redness of Verified 06/14/25 08:35 Skin Active Medications: Current Medications Calcium Carbonate (Calcium Carbonate 750 Mg Tab.Chew) 750 mg PO Q4H PRN PRN Reason: Heartburn Ceftriaxone Sodium (Ceftriaxone Sodium 1 Gm Vial) 1 gm IVPUSH Q24H [facility] Last Admin: 06/14/25 07:56 Dose: 1 gm Enoxaparin Sodium (Enoxaparin Sodium 40 Mg/0.4 Ml Syringe) 40 mg SUBCUT Q24H [facility] Last Admin: 06/14/25 08:33 Dose: 40 mg Gabapentin (Gabapentin 300 Mg Capsule) 300 mg PO BEDTIME [facility] Last Admin: 06/14/25 03:22 Dose: 300 mg Doxycycline Hyclate 100 mg/ (Sodium Chloride) 250 mls @ 166.67 mls/hr IV BID [facility] Last Admin: 06/14/25 08:33 Dose: 166.67 mls/hr Lisinopril (Lisinopril 5 Mg Tablet) 5 mg PO BEDTIME [facility]; Protocol Last Admin: 06/14/25 03:22 Dose: 5 mg Magnesium Hydroxide (Milk Of Magnesia 30 Ml Oral.Susp) 30 ml PO DAILY PRN PRN Reason: Constipation Melatonin (Melatonin 3 Mg Tablet) 6 mg PO BEDTIME PRN PRN Reason: Insomnia Ondansetron HCl (Ondansetron Hcl 4 Mg/2 Ml Vial) 4 mg IVPUSH Q8H PRN PRN Reason: Nausea and Vomiting Oxycodone HCl (Oxycodone Hcl Immed Release 5 Mg Tablet) 5 mg PO Q6H PRN PRN Reason: Pain, Severe (Pain Scale 7-10) Sodium Chloride (0.9 % Sodium Chloride Flush 3 Ml Syringe) 3 ml IVFLUSH QSHIFT [facility] Last Admin: 06/14/25 07:56 Dose: 3 ml Tramadol HCl (Tramadol Hcl 50 Mg Tablet) 50 mg PO Q6H PRN PRN Reason: Pain, Moderate(Pain Scale 4-6) Home Medications ?Medication ?Instructions ?Recorded ?Confirmed ?Last Taken ?Type acetaminophen 500 mg tablet 1,000 mg PO Q6H PRN pain or fever 06/14/25 06/14/25 06/09/25 History albuterol sulfate 90 mcg/actuation 2 puff inhalation Q4H PRN wheezing 06/14/25 06/14/25 Unknown History aerosol inhaler (Ventolin HFA) cholecalciferol (vitamin D3) 25 25 mcg PO DAILY 06/14/25 06/14/25 Unknown History mcg (1,000 unit) tablet (Vitamin D3) emtricitabine 200 mg-tenofovir 1 tab PO DAILY 06/14/25 06/14/25 06/12/25 History disoproxil fumarate 300 mg tablet estradiol 0.01% (0.1 mg/gram) 0.5 g vaginal 2XW 06/14/25 06/14/25 Unknown History vaginal cream fluoxetine 20 mg/5 mL (4 mg/mL) 5.2 mg PO DAILY 06/14/25 06/14/25 Unknown History oral solution gabapentin 300 mg capsule 300 mg PO BEDTIME 06/14/25 06/14/25 Unknown History lisinopril 5 mg tablet 5 mg PO DAILY 06/14/25 06/14/25 06/13/25 History testosterone undecanoate 237 mg 237 mg PO BID 06/14/25 06/14/25 06/12/25 History capsule (Jatenzo) Physical Exam Exam: Exam: Young male No acute distress Nonicteric No respiratory distress Abdomen soft, nontender, nondistended No lower extremity edema Vital Signs: Vital Signs: Last Vital Signs Temp 98.0 F 06/14/25 07:58 Pulse 85 06/14/25 07:58 Resp 16 06/14/25 07:58 BP 118/72 06/14/25 07:58 Pulse Ox 100 06/14/25 07:58 O2 Del Method Room Air 06/14/25 07:58 BMI result Body Mass Index 30.4 Results Labs 06/14/25 04:48 06/14/25 04:47 Labs: Short CBC 06/13/25 06/14/25 Range/Units 20:21 04:48 WBC 8.8 8.4 (4.8-10.8) X10*3/uL Hgb 15.0 14.4 (14.0-18.0) g/dl Hct 43.7 42.3 (42.0-52.0) % Plt Count 290 D 289 (160-400) X10*3/uL BMP 06/13/25 06/14/25 20:21 04:47 Sodium 140 140 Potassium 4.0 4.3 Chloride 105 107 Carbon Dioxide 29 24 BUN 17 H 13 Creatinine 1.07 0.84 Calcium 9.6 9.2 Liver Function 06/13/25 06/14/25 Range/Units 20:21 04:47 Total Bilirubin 0.4 0.4 (0.0-1.0) mg/dL AST 290 H 222 H (5-37) U/L ALT 746 H 662 H (0-40) U/L Alkaline Phosphatase 172 H 158 H (39-117) U/L Albumin 4.5 4.2 (3.5-5.0) g/dL Assessment and Plan (1) Elevated LFTs: Status: Acute (2) Fatigue: Status: Acute (3) Arthralgia: Status: Inactive (4) Chills (without fever): Status: Acute (5) Abnormal LFTs (liver function tests): Status: Inactive (6) Night sweats: Status: Acute Plan Differentials for elevated LFTs include drug-induced liver injury given exposure to azithromycin and doxycycline, bystander due to underlying illness, or underlying autoimmune hepatitis or other chronic liver disease which got unmasked by current presentation. Appear to being improving slightly based on labs this morning. Plan: - labs ordered to rule out autoimmune hepatitis, Dick's, iron overload - HIV RNA and CD4 count ordered to r/o acute HIV - daily CBC, INR, CMP - may need Infectious diseases consult if continues to have constellation of symptoms of chills, night sweats, joint pains in the setting of unprotected intercourse Thank you for allowing me to participate in his care. Please do not hesitate to reach out for any questions or concerns. Procedures Date of Service Date of Service: 06/14/25
--- NOTE | 2025-06-14 10:40 | PHA.MEDREC ---
Addendum entered by Evangelina Vargas RPh 06/14/25 11:04: reviewed by [facility]. Original Note: Pharmacy Consult ? Medication Reconciliation Pharmacy has completed the medication reconciliation. Spoke with patient to confirm. Patient last took Truvada and Jatenzo on . Fluoxetine is 1.3 mL (5.2 mg) daily. Last took doxycycline yesterday morning. There are no specific days of the week they use estradiol. Patient takes gabapentin 1 cap every night. Last took tylenol on Monday.
[2025-06-14 11:16] LABS: Cholesterol 139 mg/dL (<200); HDL Cholesterol 25 mg/dL (>40); Iron 174 mcg/dL (45-160); Percent Iron Saturation 62 % (15-50); Total Iron Binding Capacity 281 mcg/dL (228-428); Triglycerides 112 mg/dL (<150); Unsaturated Iron Binding 107 ug/dL
[2025-06-14 11:23] LABS: Hemoglobin A1C 127.6145 umol/L; Total Hemoglobin (HGBA1C) 3741.3006 umol/L
[2025-06-14 11:30] LABS: Ferritin 600 ng/mL (20-250)
--- NOTE | 2025-06-14 15:33 | MHC.CM.PN ---
Addendum entered by Hortencia Myrick 06/15/25 11:53: PT CLEARED TO DC HOME TODAY WITH NO SERVICES VIA PRIVATE TRANSPORT Original Note: PT REPORTS HE LIVES ALONE AND IS INDEPENDENT WITH CARE HE HAS NO SERVICES OR DME DECLINES A HCP PCP: [facility] PT SHOWING NO ACTIVE INSURANCE AWARE A REFERRAL WAS SENT TO [facility] [place] [facility] DCP: HOME VIA PRIVATE TRANSPORT
[2025-06-14] MEDS: TESTOSTERONE UNDECANOATE 237 EACH PO (23:02)
[2025-06-15 03:03] VITALS: BP 108/66; PULSE 72; RESP 18; TEMP 36.3; O2SAT 96
[2025-06-15 06:07] LABS: Hematocrit 41.6 % (42.0-52.0); Hemoglobin 14.2 g/dl (14.0-18.0); Mean Corpuscular HGB Conc 34.1 g/dl (31.0-36.0); Mean Corpuscular Hemoglobin 33.6 pg (27.0-33.0); Mean Corpuscular Volume 98.3 fL (80.0-98.0); NRBC Abs Auto 0.000 X10*3/uL (0.0-0.012); NRBC Pct Auto 0.0 /100WBC (0.0-0.2); Platelet Count 285 X10*3/uL (160-400); Red Blood Count 4.23 X10*6/uL (4.60-5.80); White Blood Count 7.3 X10*3/uL (4.8-10.8)
[2025-06-15 06:25] LABS: Alanine Aminotransferase 503 U/L (0-40); Albumin Level 4.0 g/dL (3.5-5.0); Alkaline Phosphatase 146 U/L (39-117); Anion Gap 10 (12-20); Aspartate Amino Transferase 122 U/L (5-37); Blood Urea Nitrogen 14 mg/dL (9-16); Calcium 9.2 mg/dL (8.4-10.2); Carbon Dioxide 27 mmol/L (22-29); Chloride 107 mmol/L (96-108); Creatinine Clr Calc Pharmacy 131.4; Estimated Glomerular Filt Rate > 60; Potassium 4.4 mmol/L (3.3-5.1); Sodium 140 mmol/L (135-145); Total Protein 7.3 g/dL (6.5-8.0)
[2025-06-15 07:15] VITALS: BP 116/58; PULSE 60; RESP 18; TEMP 36.6; O2SAT 95
--- NOTE | 2025-06-15 07:39 | P.PNGI_ITS ---
Subjective Subjective Date of Service: 06/15/25 Interval History: Seen at bedside. Only complaint is fatigue and sweating. No abdominal pain, nausea. LFTs cont to trend down. Critical Care Time (minutes): 0 Physical Exam 2 Exam: Exam: No apparent distress Nonicteric Abdomen soft, nondistended Alert and oriented x3 Vital Signs: Vital Signs: Last Vital Signs Temp 97.9 F 06/15/25 07:15 Pulse 60 06/15/25 07:15 Resp 18 06/15/25 07:15 BP 116/58 L 06/15/25 07:15 Pulse Ox 95 06/15/25 07:15 O2 Del Method Room Air 06/15/25 07:15 BMI result Body Mass Index 30.4 Objective Data Labs 06/15/25 05:10 06/15/25 05:10 Labs: Laboratory Results - last 24 hr 06/14/25 06/14/25 06/15/25 01:50 10:29 05:10 WBC 7.3 RBC 4.23 L Hgb 14.2 Hct 41.6 L MCV 98.3 H MCH 33.6 H MCHC 34.1 RDW 12.4 Plt Count 285 MPV 9.7 Absolute Nucleated RBC 0.000 Nucleated RBC % (auto) 0.0 Sodium 140 Potassium 4.4 Chloride 107 Carbon Dioxide 27 Anion Gap 10 L BUN 14 Creatinine 0.85 Estim Creat Clear Calc 131.4 Estimated GFR > 60 Random Glucose 96 Estimat Average Glucose 105 Hemoglobin A1c % 5.3 Calcium 9.2 Iron 174 H TIBC 281 % Saturation 62 H Unsat Iron Binding 107 Ferritin 600 H Total Bilirubin 0.4 AST 122 H ALT 503 H Alkaline Phosphatase 146 H Total Protein 7.3 Albumin 4.0 Triglycerides 112 Cholesterol 139 LDL Cholesterol, Calc 92 HDL Cholesterol 25 L Stl C. cayetanensis PCR Cancelled Stool Rotavirus A PCR Cancelled Stl Adenov F 40/41 PCR Cancelled Stool Astrovirus (PCR) Cancelled Stool Campylobacter PCR Cancelled Stool Cryptosporidium PCR Cancelled Stl Sh Tox Pr E STEC PCR Cancelled Stool E coli O157 PCR Cancelled Stl Enterotoxigenic E PCR Cancelled Stool EPEC (PCR) Cancelled Stool EAEC (PCR) Cancelled Stl E. histolytica PCR Cancelled Stool Giardia Lamblia PCR Cancelled Stl P. shigelloides PCR Cancelled Stool Salmonella PCR Cancelled Stool Sapovirus (PCR) Cancelled Stl Shigella/EIEC PCR Cancelled St Y.enterocolitica PCR Cancelled Stool Vibrio (PCR) Cancelled Stl Vibrio cholerae PCR Cancelled Stl Norovirus GI/GII PCR Cancelled Microbiology Microbiology Results: Microbiology 06/14/25 04:47 Blood - Venous Blood Culture - Preliminary No growth after 24 hours. 06/14/25 04:48 Blood - Venous Blood Culture - Preliminary No growth after 24 hours. Procedures Date of Service Date of Service: 06/15/25 Progress Note: A&P Assessment and plan (1) Elevated LFTs: Status: Acute (2) Fatigue: Status: Acute (3) Chills (without fever): Status: Acute (4) Night sweats: Status: Acute Plan LFT trend reassuring. AIH and acute HIV labs pending. No concern for liver failure in the absence of jaundice, coagulopathy or encephalopathy. Plan: - Recheck LFTs on 06/19 as outpatient - Follow pending labs Time Spent With Patient Time: Total time managing care of this patient today ____ minutes. Quality Stroke Does the patient have a stroke diagnosis?: No VTE Prior VTE?: No VTE Risk Level:: Medical - moderate - high VTE Device Contraindication: Treatment Not Indicated VTE Drug Contraindication: N/A - Med Ordered
[2025-06-15] MEDS: TESTOSTERONE UNDECANOATE 237 EACH PO (08:13)
[2025-06-15] MEDS: FLUoxetine HCl Oral Solution 20 MG/5 ML SOLUTION 5.2 MG PO (08:14)
[2025-06-15] MEDS: 0.9 % Sodium Chloride Flush 3 ML SYRINGE IVFLUSH (08:16)
--- NOTE | 2025-06-15 08:19 | PM.DS ---
DS: Providers Provider Date of Service: 06/15/25 Date of admission: 06/14/25 02:52 Date of discharge: 06/15/25 Primary care physician: Marichuy Stapleton NP Consults: 06/14/25 03:08 Consult to Gastroenterology Routine Consulting Provider: Chandni Choudhury Reason for consultation: elevated LFTs, fatigue Has provider been notified: No 06/14/25 07:11 Consult to Infectious Diseases Routine Consulting Provider: [facility] Reason for consultation: gram positive bacteremia ; transamnitis DS: Diagnosis Discharge Diagnosis (1) Elevated LFTs: Status: Acute (2) Fatigue: Status: Acute (3) Chills (without fever): Status: Acute (4) Night sweats: Status: Acute DS: Summary Hospital Course Hospital Course: admission hpi Chief Complaint: fatigue, sweats Patient is a 30-year-old trans female to male patient with a past medical history significant for hypertension, anxiety/depression and irritable bowel syndrome, who presented to the ED due to fatigue and chills with lack of appetite, sent by his PCP due to elevated LFTs. He was recently seen here for sore throat, malaise and chills, strep test was negative as well as tick panel, mono, STI testing, hepatitis however LFTs were elevated at that time. He was vacationing at [facility] from 05/29 through 06/01 and reported unprotected oral sex with other men. He reports a sore throat prior to these events. He was treated with a Zithromax although strep test was negative. The sore throat resolved shortly after starting this. He denies any rash, chest pain, shortness of breath, abdominal pain. The patient reported that his PCP did do a throat swab for gonorrhea and chlamydia which came back negative. He takes HIV prep medication, has been on this for the past 4 months. Reports he was drinking heavily while on the [facility], he does not drink at baseline. Viral testing has all been negative as well. hospital course: Patient is a 30-year-old trans female to male patient with a past medical history significant for hypertension, anxiety/depression and irritable bowel syndrome, who presented to the ED due to fatigue and chills with lack of appetite, sent by his PCP due to elevated LFTs. transaminitis, fatigue - no leukocytosis, vital signs stable, lactic acid and blood cultures negative, recent prior visit show 1/2 _+ bacilus which is a contamination - abdominopelvic CT negative - C diff negative - GI panel and O+P pending - HIV negative, CD4 pending -LFTs trending down, see trend - recent negative workup including tick-borne panel, mono, STI testing, hepatitis A, B, C, HIV, strep - was recently treated prophylactically for strep with azithromycin as well as doxycycline for concern for tick-borne illness - Given Vanco for possible bacteremia, and may have reacted to it--for now hold Abx -He may have a viral process or more likely medication induced transfaminitis, particulary testosteron and possibly HiV preventative med. I have advised he hold these medication for some times but unwilling to commit to this at this time. -Will continue to need LFTs to be monitoed post discharge and follow up with GI Hypertension - continue home meds Anxiety/depression - continue home meds Time Attestation Discharge Coordination Time (in mins): .35 Quality: Safe Use of Opioids Does Pt have an Active Cancer Diagnosis on the Problem List?: No Quality: Stroke Does the patient have a stroke diagnosis?: No Physical Exam Vital Signs: Vital Signs: Last Vital Signs Temp 97.9 F 06/15/25 07:15 Pulse 60 06/15/25 07:15 Resp 18 06/15/25 07:15 BP 116/58 L 06/15/25 07:15 Pulse Ox 95 06/15/25 07:15 O2 Del Method Room Air 06/15/25 07:15 BMI result Body Mass Index 30.4 DS: Data Data Completed and Pending Labs on day of discharge: Laboratory Results - last 24 hr 06/14/25 06/15/25 10:29 05:10 WBC 7.3 RBC 4.23 L Hgb 14.2 Hct 41.6 L MCV 98.3 H MCH 33.6 H MCHC 34.1 RDW 12.4 Plt Count 285 MPV 9.7 Absolute Nucleated RBC 0.000 Nucleated RBC % (auto) 0.0 Sodium 140 Potassium 4.4 Chloride 107 Carbon Dioxide 27 Anion Gap 10 L BUN 14 Creatinine 0.85 Estim Creat Clear Calc 131.4 Estimated GFR > 60 Random Glucose 96 Estimat Average Glucose 105 Hemoglobin A1c % 5.3 Calcium 9.2 Iron 174 H TIBC 281 % Saturation 62 H Unsat Iron Binding 107 Ferritin 600 H Total Bilirubin 0.4 AST 122 H ALT 503 H Alkaline Phosphatase 146 H Total Protein 7.3 Albumin 4.0 Triglycerides 112 Cholesterol 139 LDL Cholesterol, Calc 92 HDL Cholesterol 25 L Preliminary micro results at discharge 06/14/25 04:47 Blood Culture - Preliminary Blood - Venous No growth after 24 hours. 06/14/25 04:48 Blood Culture - Preliminary Blood - Venous No growth after 24 hours. Discharge Plan Discharge Anticipated Discharge Date/Time: 06/15/25 08:30 Patient Disposition: Home, Self-Care Discharge Diagnosis: Elevated LFTs Referrals: Marichuy Stapleton ON SITE SERVICES SPECIALIST [Primary Care Provider, Internal Medicine] - 1 Week Discharge Medications: Continued doxycycline hyclate 100 mg tablet 100 mg PO Q12H 10 Days Qty: 20 0RF fluoxetine 20 mg/5 mL (4 mg/mL) solution 5.2 mg PO DAILY acetaminophen 500 mg Tablet 1,000 mg PO Q6H PRN (Reason: pain or fever) gabapentin 300 mg capsule 300 mg PO BEDTIME lisinopril 5 mg tablet 5 mg PO DAILY estradiol 0.01 % (0.1 mg/gram) cream 0.5 g vaginal 2XW albuterol sulfate [Ventolin HFA] 90 mcg/actuation HFA aerosol inhaler 2 puff INHALATION Q4H PRN (Reason: wheezing) emtricitabine-tenofovir (TDF) 200-300 mg tablet 1 tab PO DAILY cholecalciferol (vitamin D3) [Vitamin D3] 25 mcg (1,000 unit) Tablet 25 mcg PO DAILY Jatenzo 237 mg capsule 237 mg PO BID Diet: Advance to usual diet Activity on Discharge: As tolerated Stand Alone Forms: Patient Portal Discharge page Print Language: Gambian Care Plan Goals: recovery from liver imflamation and elevated liver enzymes Health Concerns: Elevated liver enzymes Plan of Treatment: Recommend holding Testosteron as likely cause of of elevated LFTs Assessment: see above
[2025-06-15 11:54] VITALS: BP 121/73; PULSE 73; RESP 18; TEMP 36.4; O2SAT 96
[2025-06-17 20:29] LABS: HIV RNA PCR Qn Copies NOT DETECTED copies/mL (NOT DETECTED); HIV RNA PCR Qn Log Copies NOT DETECTED (NOT DETECTED)
[2025-06-18 18:59] LABS: Anti Nuclear Antibody Pattern Nuclear, Speckled; Anti Nuclear Antibody Screen POSITIVE (NEGATIVE); Anti Nuclear Antibody Titer 1:80 titer
[2025-06-18 22:38] LABS: Liver Kidney Microsomal Ab <=20.0 U (<=20.0)
[2025-06-19 22:43] LABS: Absolute CD3 Count 2616 cells/uL (840-3060); Absolute CD8 Count 1814 cells/uL (180-1170); Percent CD3 Cells 82 % (57-85); Percent CD8 Cells 57 % (12-42)
== END 2025-06-15 12:11 | disposition home or self-care (01) | DRG 948 ==
LOC: HO.ED 06-14 02:14 → HO.EDOVER 06-14 05:34 → HO.S3 06-14 10:06
PROVIDERS: Internal Medicine; Physician Assistant Medical; Admitting Provider Physician Assistant; Emergency Provider Emergency Medicine; PCP Nurse Practitioner Family; Visit Provider Internal Medicine
DX: R74.01 Elevation of levels of liver transaminase levels (principal); T38.7X5A Adverse effect of androgens and anabolic congeners, initial encounter; F41.9 Anxiety disorder, unspecified; F32.A Depression, unspecified; F64.0 Transsexualism; I10 Essential (primary) hypertension; L29.9 Pruritus, unspecified; T36.8X5A Adverse effect of other systemic antibiotics, initial encounter; Z79.899 Other long term (current) drug therapy
CPT/HCPCS: 36415; 74177; 80053; 80061; 82103; 82390; 82728; 83036; 83540; 83605; 83690; 84443; 85007; 85027; 85610; 86015; 86038; 86039; 86359; 86360; 86376; 87040; 87177; 87209; 87389; 87493; 87507; 87536; 99285; J0696; J1271; J1650; J3373; Q9967

== ENCOUNTER → 2025-06-13 22:46 | Outpatient (BNV) | payer MEDICAID, SELFPAY | PROVIDERS: Emergency Provider Emergency Medicine; PCP Nurse Practitioner Family; Visit Provider Radiology Diagnostic Radiology | DX: R94.5 Abnormal results of liver function studies (principal) | CPT/HCPCS: 74177 ==

== ENCOUNTER → 2025-06-14 02:52 | Outpatient (BNV) | payer MEDICAID, SELFPAY | PROVIDERS: Admitting Provider Physician Assistant; Emergency Provider Emergency Medicine; PCP Nurse Practitioner Family; Visit Provider Internal Medicine | DX: R79.89 Other specified abnormal findings of blood chemistry (principal); R53.83 Other fatigue; R68.83 Chills (without fever); R61 Generalized hyperhidrosis | CPT/HCPCS: 99222; 99232 ==

== ENCOUNTER → 2025-06-14 02:52 | Outpatient (BNV) | payer MEDICAID, SELFPAY | PROVIDERS: Admitting Provider Physician Assistant; Emergency Provider Emergency Medicine; PCP Nurse Practitioner Family; Visit Provider Physician Assistant | DX: K76.89 Other specified diseases of liver (principal); R74.01 Elevation of levels of liver transaminase levels; R53.83 Other fatigue | CPT/HCPCS: 99223; 99499 ==

== ENCOUNTER 2025-06-23 15:30 | Outpatient (REF) | payer OTHER, SELFPAY ==
--- OUTSIDE RECORDS SUMMARY | 2025-06-23 15:39 | XMS_ITS | Encounter Summary ---
Author Organization [facility] Address [address] [place] [phone] Phone Care Team Providers Care Health Record Technician Name Role Phone Marichuy Stapleton [facility] Primary Care Provide r Naida Orozco DO Unavailable Naldo Arceo MD Unavailable [phone] Ava Guzmán MD Unavailable Tiffanie Miguel MD Unavailable Tiffanie Miguel MD Primary Care Provider Unknown, Unknown Primary Care Provider Marichuy Kiran [facility] Primary Care Provide r Tiffanie Miguel MD Unavailable Ava Guzmán MD Unavailable Tiffanie Miguel MD Unavailable Eddie Pedro MD Unavailable Eddie Pedro MD Unavailable Encounter Details Date Type Department Care Team (Latest Contact Info) Description 03/29/2021 Transcribe Orders [facility] Laboratory [address] [address] Jenny Syed NP [address] [place] [address] [email or web address] RUQ abdominal pain (Primary Dx); Nausea; Abnormal bowel habits Social History Tobacco Use Types Packs/Day Years Used Date Smoking Tobacco: Former Smokeless Tobacco: Never Comments:Quit over a year ag o, was a social smoker Alcohol Use Standard Drinks/Week Comments Not Currently 0 (1 standard drink = 0.6 oz pur e alcohol) occ Child or Family Care Answer Date Record ed Do you have problems with on e of the following making it difficult for you to work, study, or receive health care? No 03/13/2019 Education Answer Date Recorded Are you interested in help w ith more adult education (for example, completing high school, GED, job training, learning the [place]mese language, technical skills, or developing parenting skills)? Yes 03/13/2019 Are you concerned about learning? Not on file 03/13/2019 Not on file 03/13/2019 Not on file 03/13/2019 Food Answer Date Recorded Within the past 6 months we worried whether our food would run out before we got money to buy more. Sometimes True 019 Within the past 6 months the food we bought just didn't last and we didn't have enough money to get more. Sometimes True 11/2018 Paying for Meds Answer Date Recorded Do you have trouble paying for medicines? Yes 03/13/2019 Paying Utility Bills Answer Date Record ed Do you have trouble paying your heating or elect ricity bill? Yes 03/13/2019 Transportation Answer Date Recorded Has the lack of transportati on kept you from medical appointments or from getting medications? No 03/13/2019 Comments No Sex and Gender Information Value Date Recorded Sex Assigned at Female 03/28/2018 1:17 PM EDT Legal Sex Female 8:51 PM EDT Gender Identity Transgender Male 03/28/2018 2:00 PM EDT Sexual Orientation Pansexual 03/28/2018 2: 00 PM EDT documented as of this encounter Plan of Treatment Upcoming Encounters Date Type Department Care Team ([facility] st Contact Info) Description 06/25/2025 9:00 AM EDT Office Visit [address] [phone] Allyn Vargas MD [address] [place] [address] [phone] 07/16/2025 3:00 PM EDT Office Visit [facility] [address] [place] [address] Marichuy Stapleton, FIELD TECHNICAL SUPPORT CONSULTANT [address] [place] [address] [email or web address] documented as of this encounter Results * Copper, blood (03/29/2021 2:34 PM EDT) COPPER 0.83 0.75 - 1.45 mcg/mL [facility] Comment: (NOTE) ADDITIONAL INFORMATION This test was developed and its performance characteristics determined by [facility] in a manner consistent with CLIA requirements. This test has not been cleared or approved by the U.S. Food and Drug Administration. Blood 03/29/2021 2:34 PM EDT 03/29/2021 2:49 PM EDT Jenny Moise NP LAB BLOOD ORDERABLES Final Result [facility] [address] [place] [address] * Zinc (03/29/2021 2:34 PM EDT) ZINC 0.70 0.66 - 1.10 mcg/mL [facility]PERIOR Comment: (NOTE) ADDITIONAL INFORMATION This test was developed and its performance characteristics determined by [facility] in a manner consistent with CLIA requirements. This test has not been cleared or approved by the U.S. Food and Drug Administration. Blood 03/29/2021 2:34 PM EDT 03/29/2021 2:49 PM EDT Jenny Moise PLATE GR[facility]ER LAB BLOOD ORDERABLES Final Result [facility]/PATH [address] [place] [address] * Vitamin B12 (03/29/2021 2:34 PM EDT) VITAMIN B12 428 232 - 1,245 pg/mL [facility] Blood 03/29/2021 2:34 PM EDT 03/29/2021 2:49 PM EDT Jenny Mulligan Jose Maria PLATE GRINDER LAB BLOOD ORDERABLES Final Result Performing Organization Address [facility] Co de Phone Number [address] [address] * (ABNORMAL) 25-OH vitamin D (03/29/2021 2:34 PM EDT) 25 OH VIT D (TOTAL) 22(L) 30 - 60 ng/mL [facility] Blood 03/29/2021 2:34 PM EDT 03/29/2021 2:49 PM EDT Jenny Moise PLATE GRINDER LAB BLOOD ORDERABLES Final Result Performing Organization Address [facility] Co de Phone Number [address] [address] * Magnesium (03/29/2021 2:34 PM EDT) MAGNESIUM 2.3 1.6 - 2.6 mg/dL [facility] Blood 03/29/2021 2:34 PM EDT 03/29/2021 2:49 PM EDT Jenny Moise PLATE GR[facility]ER LAB BLOOD ORDERABLES Final Result [address] [address] * Ferritin (03/29/2021 2:34 PM EDT) FERRITIN 87 13 - 150 ug/L [facility] Blood 03/29/2021 2:34 PM EDT 03/29/2021 2:49 PM EDT us Jennyaugustine Mulligan Jose Maria PLATE GRINDER LAB BLOOD ORDERABLES Final Result Performing Organization Address [facility]/State/ZIP Co de Phone Number [address] [address] * Folate (03/29/2021 2:34 PM EDT) FOLIC ACID 13.7 4.2 - 19.9 ng/mL [facility] Blood 03/29/2021 2:34 PM EDT 03/29/2021 2:49 PM EDT Jenny Esearelis Moise PLATE GRINDER LAB BLOOD ORDERABLES Final Result Performing Organization Address [facility]/ZIP Co de Phone Number [address] [address] * TSH (03/29/2021 2:34 PM EDT) TSH 1.59 0.27 - 4.20 uIU/mL [facility] Blood 03/29/2021 2:34 PM EDT 03/29/2021 2:49 PM EDT Jenny Moise PLATE GRINDER LAB BLOOD ORDERABLES Final Result Performing Organization Address City/[facility]/ZIP Co de Phone Number [address] [address] * Iron and iron binding capacity (03/29/2021 2:34 PM EDT) IRON 126 30 - 160 ug/dL [facility] IRON BINDING CAPACITY 308 228 - 428 ug/dL [facility] TRANSFERRIN SATURAT. 41 15 - 50 % [facility] Blood 03/29/2021 2:34 PM EDT 03/29/2021 2:49 PM EDT us Jenny Moise [facility] GR[employer]ER LAB BLOOD ORDERABLES Final Result [address] [address] * Comprehensive metabolic panel (03/29/2021 2:34 PM EDT) SODIUM 138 133 - 146 mmol/L [facility] POTASSIUM 4.6 3.3 - 5.1 mmol/L [facility] CHLORIDE 101 96 - 108 mmol/L [facility] CO2 26 21 - 35 mmol/L [facility] BUN 12 6 - 19 mg/dL [facility] CREATININE 0.80 0.5 - 1.5 mg/dL [facility] GLUCOSE 86 70 - 99 mg/dL [facility] ALBUMIN 4.5 3.9 - 4.8 g/dL [facility] TOTAL PROTEIN 7.9 6.5 - 8.0 g/dL [facility] CALCIUM 9.9 8.4 - 10.3 mg/dL [facility] ALKALINE PHOSPHATASE 84 39 - 117 U/L [facility] TOTAL BILIRUBIN 0.3 0.0 - 1.2 mg/dL [facility] AST 31 0 - 37 U/L [facility] ALT 20 0 - 40 U/L [facility] GLOBULIN 3.4 1 - 4.8 g/dL [facility] EGFR 102 >59 mL/min/1.7 3m2 [facility] Comment:Estimated glomerular filtration rate calculated using the CKD-EPI equation. ANION GAP 16 10 - 20 mmol/L [facility] Blood 03/29/2021 2:34 PM EDT 03/29/2021 2:49 PM EDT Jenny Moise PLATE GRINDER LAB BLOOD ORDERABLES Final Result Performing Organization Address City/[facility]/ZIP Co de Phone Number [address] [address] * (ABNORMAL) CBC and differential (03/29/2021 2:34 PM EDT) WBC 9.19 4.00 - 11.00 K/uL [facility] RBC 5.43(H) 3.72 - 5.30 M/uL [facility] HGB 17.3(H) 11.0 - 15.2 g/dL [facility] HCT 52.2(H) 31.6 - 44.1 % [facility] PLT 306 140 - 430 K/uL [facility] MCV 96.1 78.0 - 97.0 fL [facility] MCH 31.9 25.0 - 33.0 pg [facility] MCHC 33.1 32.0 - 36.0 g/dL [facility] RDW 11.6 11.0 - 16.0 % [facility] MPV 11.5 8.4 - 12.8 fl [facility] NRBC 0.00 0 /100 WBCs [facility] ABSOLUTE NRBC 0.00 0 K/uL [facility] DIFF METHOD Auto [facility] NEUTS 64.4 43.0 - 75.0 % [facility] LYMPHS 22.2 18.2 - 47.4 % [facility] MONOS 10.6 4.00 - 11.00 % [facility] EOS 1.7 0.0 - 8.0 % [facility] BASOS 0.9 0.0 - 2.0 % [facility] Granulocytes, immature (%) 0.2 0.0 - 0.9 % [facility] ABSOLUTE NEUTS 5.92 1.80 - 7.70 K/uL [facility] ABSOLUTE LYMPHS 2.04 1.00 - 3.10 K/uL [facility] ABSOLUTE MONOS 0.97(H) 0.20 - 0.80 K/uL [facility] ABSOLUTE EOS 0.16 0.00 - 0.80 K/uL [facility] ABSOLUTE BASOS 0.08 0.00 - 0.09 K/uL [facility] Granulocytes, immature 0.02 0.00 - 0.05 K/uL [facility] Blood 03/29/2021 2:34 PM EDT 03/29/2021 2:49 PM EDT us Jenny Moise PLATE GR[employer]ER LAB BLOOD ORDERABLES Final Result [facility] [address] [place] [address] documented in this encounter Visit Diagnoses Diagnosis RUQ abdominal pain- Primary Abdominal pain, right upper quadrant Nausea Nausea alone Abnormal bowel habits documented in this encounter Additional Health Concerns Assessment Noted Time PHQ-9 Depression Total Score: 9 07/25/20 18 3:30 PM EDT PHQ-2 Depression Total Score: 3 07/25/20 18 3:30 PM EDT documented as of this encounter Care Teams Health Record Technician Relationship Specialty Start Date End Date Marichuy Stapleton FNP [address] [place] [phone] PCP - General Family Medicine 05/16/18 09/23/21 Tiffanie Miguel MD [address] [place] [address] [address] [place] [address] [email or web address] PCP - General Family Medicine 09/24/21 09/24/21 Unknown, Pratik, PCP - General 11/26/21 12/07/21 Marichuy Stapleton FNP [address] [place] [phone] PCP - General Family Medicine 12/08/21 Naida Orozco DO [address] [place] [phone] [email or web address] 11/20/18 09/26/21 Naldo Arceo MD [address] [place] [address], [address] [place] [address] [email or web address] Insurance Assigned Provider 10/18/20 05/22/21 Ava Guzmán MD [address] [address] [email or web address] Insurance Assigned Provider 05/22/21 09/18/21 Tiffanie Migeul MD [address] [place] [phone] [email or web address] Insurance Assigned Provider 09/18/21 12/19/21 Tiffanie Miguel MD [address] [place] [phone] [email or web address] Insurance Assigned Provider 09/18/21 08/20/22 Ava Guzmán MD [address] [place] [phone] [email or web address] Insurance Assigned Provider 08/20/22 09/18/22 Tiffanie Miguel MD [address] [place] [id number] [email or web address] Insurance Assigned Provider 09/18/22 02/25/23 Edide Pedro MD [address] [place] [address] Insurance Assigned Provider 02/25/23 06/08/23 Eddie Pedro MD [address] [place] [address] Insurance Assigned Provider 02/25/23 07/22/23 documented as of this encounter Additional Source Comments The information contained in this document represents components of the legal health record. It is not the complete legal health record.[facility]
[2025-06-23 16:43] LABS: Alanine Aminotransferase 159 U/L (0-40); Albumin Level 4.5 g/dL (3.5-5.0); Alkaline Phosphatase 109 U/L (39-117); Aspartate Amino Transferase 44 U/L (5-37); Total Protein 7.8 g/dL (6.5-8.0)
== END 2025-06-23 15:31 | disposition home or self-care (01) ==
LOC: HO.LAB 15:30
PROVIDERS: PCP Nurse Practitioner Family; Visit Provider Internal Medicine
DX: R79.89 Other specified abnormal findings of blood chemistry (principal)
CPT/HCPCS: 36415; 80076